=== PATIENT | female | born 1975 | race Two or more races ===

== ENCOUNTER 2017-07-16 23:30 | Emergency (ER) | payer MEDICAID ==
[~2017-07-16] VITALS: Ht 160 cm; Wt 81.6 kg
[~2017-07-16 23:30] MED LIST: ASP81EC PO; Atorvastatin Calcium PO
[2017-07-17 00:48] LABS: Basophils # (auto) 0 uL; Basophils % (auto) 0.5 % (0.0-2.0); CONDITION Y; Eosinophils # (auto) 0.2 uL; Hematocrit 38.7 % (36.0-46.0); Hemoglobin 13.3 g/dL (12.2-16.2); Lymphocytes # (auto) 3.5 uL; Lymphocytes % (auto) 38.3 % (10.0-50.0); Mean Corpuscular Hgb Conc. 34.3 g/dL (32.0-36.0); Mean Corpuscular Volume 87.4 fL (80.0-100.0); Monocytes # (auto) 0.4 uL; Monocytes % (auto) 4.9 % (0.0-12.0); Neutrophils # (auto) 4.9 uL; Neutrophils % (auto) 54.3 % (37.0-80.0); Platelet Count (auto) 327 10^3/uL (140-450); Red Cell Distribution Width 13.7 % (11.6-16.0); White Blood Cell 9.1 10^3/uL (4.4-10.8)
[2017-07-17 01:12] LABS: INR 0.98 (0.9-1.15); Partial Thromboplastin Time 25.7 sec (22.64-33.71); Prothrombin Time 10.7 sec (9.37-12.3)
[2017-07-17 01:33] LABS: Urine Bilirubin Negative (Negative); Urine Blood TRACE /uL (Negative); Urine Color Yellow (Yellow); Urine Glucose Normal (Normal); Urine Hyaline Cast FEW /lpf (0 - 2); Urine Ketone Negative (Negative); Urine Mucus FEW (None Seen); Urine Nitrite Negative (Negative); Urine RBC 1 /hpf (0 - 4); Urine Squamous Epithelial Cell FEW /hpf (<5); Urine Urobilinogen Normal (Negative)
[2017-07-17 02:59] LABS: Albumin 3.5 g/dL (3.4-5.0); Alkaline Phosphatase 139 U/L (45-117); Anion Gap 9 (5-15); Aspartate Aminotransferase 22 U/L (15-37); BUN/Creatinine Ratio 13.4; Bilirubin, Total 0.2 mg/dL (0.2-1.0); Blood Urea Nitrogen 11 mg/dL (7-18); Calcium 8.1 mg/dL (8.5-10.1); Carbon Dioxide 24 mmol/L (21-32); Chloride 111 mmol/L (98-107); GFR African American 98 mL/min; GFR Non-African American 81 mL/min; Glucose 90 mg/dL (74-106); Potassium 3.5 mmol/L (3.5-5.1); Sodium 144 mmol/L (136-145); Total Protein 7.8 g/dL (6.4-8.2)
[2017-07-17] MEDS ORDERED: MORPHINE SULF INJ 2 MG/ML SYRINGE 1ML IV ONE (06:00)
[2017-07-17] MEDS ORDERED: ONDANSETRON HCL 4 MG/2 ML VIAL IV ONE (06:00)
[2017-07-17] MEDS ORDERED: ASPirin 81 mg TAB PO ONE (06:30)
[2017-07-17 06:37] VITALS: BP 100/54
== END 2017-07-17 07:21 | disposition home or self-care (01) ==
LOC: ER 23:39
DX: R07.9 Chest pain, unspecified (principal); Z79.82 Long term (current) use of aspirin; Z86.73 Personal history of transient ischemic attack (TIA), and cerebral infarction without residual deficits
CPT/HCPCS: 36415; 71020; 80053; 81001; 81025; 83880; 84484; 85025; 85379; 85610; 85730; 93005; 94761; 96374; 96375; 99285; J2270; J2405

== ENCOUNTER 2018-01-04 20:02 | Emergency (ER) | payer MEDICAID ==
[~2018-01-04] VITALS: Ht 165.1 cm; Wt 87.2 kg
[2018-01-04 20:56] LABS: Urine Bacteria FEW /hpf (None Seen); Urine Blood 1+ /uL (Negative); Urine Specific Gravity 1.028 (1.001-1.035); Urine WBC 3 /hpf (0 - 5)
[2018-01-05] MEDS ORDERED: NALBUPHINE HCL 10 MG/1ml INJECTION IM ONE (00:45)
[2018-01-05] MEDS ORDERED: ONDANSETRON HCL 4 MG/2 ML VIAL IM ONE (00:45)
[2018-01-05 01:16] VITALS: BP 106/62
== END 2018-01-05 02:05 | disposition home or self-care (01) ==
LOC: ER 20:02
DX: G43.909 Migraine, unspecified, not intractable, without status migrainosus (principal); Z86.73 Personal history of transient ischemic attack (TIA), and cerebral infarction without residual deficits
CPT/HCPCS: 70450; 81001; 81025; 96372; 99285; J2300; J2405

== ENCOUNTER 2018-02-20 23:58 | Emergency (ER) | payer MEDICAID ==
[~2018-02-20] VITALS: Ht 165.1 cm; Wt 86.2 kg
[2018-02-21 00:02] VITALS: BP 127/85
[2018-02-21 00:39] LABS: Basophils # (auto) 0 uL; Basophils % (auto) 0.4 % (0.0-2.0); Eosinophils # (auto) 0.2 uL; Eosinophils % (auto) 2.2 % (0.0-7.0); Hematocrit 41.5 % (36.0-46.0); Hemoglobin 14.1 g/dL (12.2-16.2); Mean Corpuscular Hemoglobin 29.7 pg (28.0-32.0); Mean Corpuscular Hgb Conc. 33.9 g/dL (32.0-36.0); Mean Corpuscular Volume 87.5 fL (80.0-100.0); Monocytes # (auto) 0.6 uL; Monocytes % (auto) 6.3 % (0.0-12.0); Neutrophils # (auto) 4.7 uL; Neutrophils % (auto) 49.1 % (37.0-80.0); Nucleated Red Blood Cells % 0.1 %; Platelet Count (auto) 310 10^3/uL (140-450); Red Blood Cells 4.74 10^6/uL (4.0-5.20); Red Cell Distribution Width 13.3 % (11.8-14.3); White Blood Cell 9.6 10^3/uL (4.4-10.8)
[2018-02-21 00:55] LABS: Alanine Aminotransferase 40 U/L (13-56); Albumin 3.7 g/dL (3.4-5.0); Anion Gap 7 (5-15); Aspartate Aminotransferase 22 U/L (15-37); BUN/Creatinine Ratio 16.3; Blood Urea Nitrogen 13 mg/dL (7-18); Calcium 8.9 mg/dL (8.5-10.1); Carbon Dioxide 26 mmol/L (21-32); Chloride 107 mmol/L (98-107); GFR African American 101 mL/min; GFR Non-African American 83 mL/min; Glucose 124 mg/dL (74-106); Magnesium 2.3 mg/dL (1.6-2.6); Potassium 3.6 mmol/L (3.5-5.1); Sodium 140 mmol/L (136-145)
[2018-02-21 01:46] LABS: Alkaline Phosphatase 142 U/L (45-117); Bilirubin, Total 0.2 mg/dL (0.2-1.0); Total Protein 8.2 g/dL (6.4-8.2)
[2018-02-21 03:55] LABS: Urine Bacteria FEW /hpf (None Seen); Urine Blood Negative /uL (Negative); Urine Specific Gravity 1.008 (1.001-1.035); Urine WBC 3 /hpf (0 - 5)
== END 2018-02-21 04:40 | disposition left against medical advice (07) ==
LOC: ER 23:59
DX: R42 Dizziness and giddiness (principal); R07.9 Chest pain, unspecified; R11.0 Nausea; Z53.21 Procedure and treatment not carried out due to patient leaving prior to being seen by health care provider
CPT/HCPCS: 36415; 70450; 71045; 80053; 81001; 83735; 83880; 84484; 85025; 93005

== ENCOUNTER 2020-04-24 09:50 | Emergency (ER) | payer MEDICAID ==
[~2020-04-24] VITALS: Ht 165.1 cm; Wt 87.1 kg
[2020-04-24 10:09] VITALS: BP 133/74
[2020-04-24] MEDS ORDERED: KETOROLAC TROMETH 60MG/2ML VIAL IM ONE (10:15)
== END 2020-04-24 10:59 | disposition home or self-care (01) ==
LOC: ER 09:50
DX: S93.402A Sprain of unspecified ligament of left ankle, initial encounter (principal); S93.602A Unspecified sprain of left foot, initial encounter; W01.0XXA Fall on same level from slipping, tripping and stumbling without subsequent striking against object, initial encounter; Y93.E9 Activity, other interior property and clothing maintenance; Y92.89 Other specified places as the place of occurrence of the external cause; Y99.8 Other external cause status
CPT/HCPCS: 73610; 73630; 96372; 99284; J1885

== ENCOUNTER 2021-01-27 08:46 | Emergency (ER) | payer BC, MEDICAID ==
[~2021-01-27] VITALS: Ht 165.1 cm; Wt 81.6 kg
[~2021-01-27 08:46] MED LIST changes: -ASP81EC PO; +ASPI-394 PO
[2021-01-27] MEDS ORDERED: ACETAMINOPHEN 325 MG TAB PO ONE (09:00)
[2021-01-27 10:26] VITALS: BP 124/79
== END 2021-01-27 11:36 | disposition home or self-care (01) ==
LOC: ER 08:46
DX: G43.909 Migraine, unspecified, not intractable, without status migrainosus (principal); Z20.822 Contact with and (suspected) exposure to COVID-19
CPT/HCPCS: 36415; 70450; 87426

== ENCOUNTER 2021-06-09 03:58 | Emergency (ER) | payer MEDICAID ==
[~2021-06-09] VITALS: Ht 165.1 cm; Wt 90.7 kg
[2021-06-09 05:55] VITALS: BP 126/86
== END 2021-06-09 06:56 | disposition home or self-care (01) ==
LOC: ER 03:58
DX: J06.9 Acute upper respiratory infection, unspecified (principal); J02.9 Acute pharyngitis, unspecified; R51.9 Headache, unspecified; M79.10 Myalgia, unspecified site; R53.83 Other fatigue; L56.8 Other specified acute skin changes due to ultraviolet radiation; Z86.73 Personal history of transient ischemic attack (TIA), and cerebral infarction without residual deficits; Z79.82 Long term (current) use of aspirin; Z79.899 Other long term (current) drug therapy

== ENCOUNTER 2021-06-11 11:46 | Emergency (ER) | payer MEDICAID ==
[~2021-06-11] VITALS: Ht 167.6 cm; Wt 129.3 kg
[2021-06-11 13:53] VITALS: BP 123/81
[2021-06-11] MEDS ORDERED: ACETAMINOPHEN 500 MG TAB PO ONE (14:15)
[2021-06-11] MEDS ORDERED: cefTRIAXone W LIDOCAINE 1 GM IM IM ONE (14:15)
== END 2021-06-11 15:02 | disposition home or self-care (01) ==
LOC: ER 11:46
DX: U07.1 COVID-19 (principal); J02.9 Acute pharyngitis, unspecified
CPT/HCPCS: 36415; 71045; 87426; 96372; 99284; J0696

== ENCOUNTER 2022-07-12 09:11 | Emergency (ER) | payer MEDICAID, OTHER ==
[~2022-07-12] VITALS: Ht 165.1 cm; Wt 84.9 kg
[2022-07-12 10:13] VITALS: BP 129/77
[2022-07-12] MEDS ORDERED: AMOX-277 PO (10:45)
[2022-07-12] MEDS ORDERED: TETANUS-DIPTH-ACEL PERTUSSIS 0.5ML SYR Tdap IM ONE (10:45)
[2022-07-12] MEDS ORDERED: ACET-1158 PO (10:45)
== END 2022-07-12 11:28 | disposition home or self-care (01) ==
LOC: ER 09:11
DX: S51.851A Open bite of right forearm, initial encounter (principal); W50.3XXA Accidental bite by another person, initial encounter; Y93.89 Activity, other specified; Y92.89 Other specified places as the place of occurrence of the external cause; Y99.8 Other external cause status
CPT/HCPCS: 90471; 90715

== ENCOUNTER 2022-12-01 03:30 | Emergency (ER) | payer MEDICAID ==
[~2022-12-01] VITALS: Ht 165.1 cm; Wt 91.0 kg
[~2022-12-01 03:30] MED LIST changes: +ACET-1158 PO; +AMOX-277 PO
[2022-12-01 04:09] LABS: Basophils # (auto) 0 10 ^3/uL (0-0.2); Basophils % (auto) 0.3 % (0.0-2.0); Eosinophils # (auto) 0.2 10 ^3/uL (0-0.8); Eosinophils % (auto) 2.8 % (0.0-7.0); Hematocrit 40.1 % (36.0-46.0); Hemoglobin 13.6 g/dL (12.2-16.2); Lymphocytes # (auto) 2.5 10 ^3/uL (0.4-5.4); Lymphocytes % (auto) 40.5 % (10.0-50.0); Mean Corpuscular Hemoglobin 29.5 pg (28.0-32.0); Mean Corpuscular Hgb Conc. 33.8 g/dL (32.0-36.0); Mean Corpuscular Volume 87.3 fL (80.0-100.0); Monocytes # (auto) 0.5 10 ^3/uL (0-1.3); Monocytes % (auto) 7.7 % (0.0-12.0); Neutrophils % (auto) 48.7 % (37.0-80.0); Nucleated Red Blood Cells % 0.2 %; Red Cell Distribution Width 12.9 % (11.8-14.3); White Blood Cell 6.2 10^3/uL (4.4-10.8)
[2022-12-01 04:22] LABS: Albumin 3.6 g/dL (3.4-5.0); Calcium 8.5 mg/dL (8.5-10.1); Potassium 3.9 mmol/L (3.5-5.1)
[2022-12-01 04:25] LABS: Bilirubin, Total 0.6 mg/dL (0.2-1.0); Total Protein 7.6 g/dL (6.4-8.2)
[2022-12-01 04:54] LABS: BUN/Creatinine Ratio 12.2
[2022-12-01] MEDS ORDERED: OXYCODONE W/ ACETAMINOPHEN 5/325MG TABLET PO ONE (06:45)
[2022-12-01] MEDS ORDERED: metroNIDAZOLE 500 MG TAB PO ONE (06:45)
[2022-12-01] MEDS ORDERED: CIPROFLOXACIN HCL 500 MG TAB PO ONE (06:45)
[2022-12-01] MEDS ORDERED: METR500T PO (06:53)
[2022-12-01] MEDS ORDERED: PERCOT PO (06:53)
[2022-12-01] MEDS ORDERED: CIPR-173 PO (06:53)
[2022-12-01 07:45] VITALS: BP 109/70
== END 2022-12-01 07:56 | disposition home or self-care (01) ==
LOC: ER 03:30
DX: K52.9 Noninfective gastroenteritis and colitis, unspecified (principal); K57.30 Diverticulosis of large intestine without perforation or abscess without bleeding; Z79.899 Other long term (current) drug therapy; Z98.890 Other specified postprocedural states
CPT/HCPCS: 36415; 71045; 74176; 80053; 83690; 85025

== ENCOUNTER 2024-01-16 06:35 | Emergency (ER) | payer MEDICAID, OTHER ==
[~2024-01-16] VITALS: Ht 165.1 cm; Wt 89.9 kg
[~2024-01-16 06:35] MED LIST changes: -ACET-1158 PO; +ACET500T58 PO; -AMOX-277 PO; +AMOX875T4 PO; +CIPR-173 PO; +METR500T PO; +PERCOT PO
[2024-01-16 06:46] VITALS: BP 114/72; PULSE 68; RESP 18; O2SAT 96
[2024-01-16] MEDS ORDERED: MELO-335 PO (07:31)
[2024-01-16] MEDS ORDERED: CYCL-837 PO (07:31)
== END 2024-01-16 07:41 | disposition home or self-care (01) ==
LOC: ER 06:35
DX: M54.2 Cervicalgia (principal); Z98.51 Tubal ligation status

== ENCOUNTER 2024-02-15 03:27 | Emergency (ER) | payer MEDICAID ==
[~2024-02-15] VITALS: Ht 165.1 cm; Wt 85.6 kg
[~2024-02-15 03:27] MED LIST changes: +CYCL-837 PO; +MELO15TA29 PO
[2024-02-15 03:55] LABS: Basophils # (auto) 0 10 ^3/uL (0-0.2); Basophils % (auto) 0.6 % (0.0-2.0); Eosinophils # (auto) 0.3 10 ^3/uL (0-0.8); Eosinophils % (auto) 3.7 % (0.0-7.0); Hematocrit 38.6 % (36.0-46.0); Hemoglobin 13.1 g/dL (12.2-16.2); Lymphocytes # (auto) 2.6 10 ^3/uL (0.4-5.4); Lymphocytes % (auto) 37.6 % (10.0-50.0); Mean Corpuscular Hemoglobin 29.4 pg (28.0-32.0); Mean Corpuscular Volume 86.5 fL (80.0-100.0); Monocytes # (auto) 0.5 10 ^3/uL (0-1.3); Monocytes % (auto) 7.2 % (0.0-12.0); Neutrophils # (auto) 3.6 10 ^3/uL (1.6-8.6); Neutrophils % (auto) 50.9 % (37.0-80.0); Nucleated Red Blood Cells % 0.1 %; Red Blood Cells 4.47 10^6/uL (4.0-5.20); Red Cell Distribution Width 13.2 % (11.8-14.3)
[2024-02-15 04:15] LABS: Alanine Aminotransferase 25 U/L (7-40); Albumin 4.1 g/dL (3.2-4.8); Alkaline Phosphatase 116 U/L (46-116); Anion Gap 5 (5-15); Aspartate Aminotransferase 22 U/L (13-40); BUN/Creatinine Ratio 14.7 (10.0-20.0); Bilirubin, Total 0.4 mg/dL (0.2-1.0); Blood Urea Nitrogen 11 mg/dL (9-23); Calcium 9.3 mg/dL (8.7-10.4); Carbon Dioxide 26 mmol/L (20-30); Chloride 108 mmol/L (98-107); Glucose 101 mg/dL (74-106); Magnesium 2.1 mg/dL (1.6-2.6); Potassium 3.7 mmol/L (3.5-5.1); Sodium 139 mmol/L (136-145); Total Protein 7.3 g/dL (5.7-8.2)
[2024-02-15 04:16] LABS: INR 1.05 (0.9-1.15); Partial Thromboplastin Time 27.7 SEC (24.5-34.5)
[2024-02-15] MEDS ORDERED: CYCL-839 PO (07:08)
[2024-02-15] MEDS ORDERED: NAP500T PO (07:08)
[2024-02-15] MEDS: CYCLOBENZAPRINE HCL 10 MG TAB PO ONE (08:05)
[2024-02-15] MEDS: KETOROLAC TROMETH 60MG/2ML VIAL IM ONE (08:05)
[2024-02-15 08:12] VITALS: BP 107/66; PULSE 61; RESP 18; TEMP 98.3; O2SAT 98
== END 2024-02-15 08:16 | disposition home or self-care (01) ==
LOC: ER 03:27
DX: R07.89 Other chest pain (principal); Z98.51 Tubal ligation status; Z86.73 Personal history of transient ischemic attack (TIA), and cerebral infarction without residual deficits
CPT/HCPCS: 36415; 71045; 80053; 83735; 83880; 84484; 85025; 85610; 85730; 93005; 96372; 99285; J1885

== ENCOUNTER 2024-05-05 16:30 | Emergency (ER) | payer MEDICAID ==
[~2024-05-05] VITALS: Ht 165.1 cm; Wt 81.0 kg
[~2024-05-05 16:30] MED LIST changes: +CYCL-839 PO; +NAP500T PO
[2024-05-05 18:20] VITALS: BP 123/75; PULSE 74; RESP 14; TEMP 98.4; O2SAT 95
[2024-05-05 19:14] LABS: Basophils # (auto) 0 10 ^3/uL (0-0.2); Basophils % (auto) 0.5 % (0.0-2.0); Eosinophils # (auto) 0.2 10 ^3/uL (0-0.8); Eosinophils % (auto) 2.1 % (0.0-7.0); Hematocrit 40.2 % (36.0-46.0); Hemoglobin 13.9 g/dL (12.2-16.2); Lymphocytes # (auto) 3.3 10 ^3/uL (0.4-5.4); Lymphocytes % (auto) 34.7 % (10.0-50.0); Mean Corpuscular Hemoglobin 30.1 pg (28.0-32.0); Mean Corpuscular Hgb Conc. 34.5 g/dL (32.0-36.0); Mean Corpuscular Volume 87.3 fL (80.0-100.0); Monocytes # (auto) 0.5 10 ^3/uL (0-1.3); Monocytes % (auto) 5.6 % (0.0-12.0); Neutrophils # (auto) 5.4 10 ^3/uL (1.6-8.6); Neutrophils % (auto) 57.1 % (37.0-80.0); Red Blood Cells 4.61 10^6/uL (4.0-5.20); Red Cell Distribution Width 13.2 % (11.8-14.3); White Blood Cell 9.5 10^3/uL (4.4-10.8)
[2024-05-05 19:19] LABS: Chloride 107 mmol/L (98-107); Sodium 139 mmol/L (136-145)
[2024-05-05 19:20] LABS: Anion Gap 5 (5-15); Calcium 9.8 mg/dL (8.7-10.4); Carbon Dioxide 27 mmol/L (20-30)
[2024-05-05 19:25] LABS: BUN/Creatinine Ratio 10.6 (10.0-20.0); Blood Urea Nitrogen 9 mg/dL (9-23); Glucose 90 mg/dL (74-106)
[2024-05-05 19:27] LABS: INR 1.03 (0.9-1.15); Partial Thromboplastin Time 25.9 SEC (24.5-34.5); Prothrombin Time 10.9 sec (9.3-11.8)
[2024-05-05] MEDS ORDERED: IBUP-1455 PO (19:38)
[2024-05-05] MEDS: KETOROLAC TROMETH 60MG/2ML VIAL IM ONE (19:56)
== END 2024-05-05 19:54 | disposition home or self-care (01) ==
LOC: ER 16:30
DX: R60.0 Localized edema (principal); Z98.51 Tubal ligation status
CPT/HCPCS: 36415; 80048; 85025; 85610; 85730; 93971

== ENCOUNTER 2024-10-02 15:03 | Inpatient (IN) | payer MEDICAID ==
[~2024-10-02] VITALS: Ht 165.1 cm; Wt 85.5 kg
[~2024-10-02 15:03] MED LIST changes: +IBUP-1455 PO
[2024-10-02] MEDS: NITROGLYCERIN 0.4 MG SL TAB SL ONE (15:15)
--- NOTE | 2024-10-02 15:19 | ED.PDOC ---
HPI Comments HPI: Poor Historian. 48y F who presents to the ED for chief complaint of chest pain. Pt states she has been having chest pain pain 1445 this afternoon while at work. Pt states she felt nausea, dizziness and chest pain. Pt states she felt chest tightness, radiating to the L arm, constant, with no associated exacerbating or relieving factors. Pt otherwise denies diaphoresis, palpitations, shortness of breath and any associated symptoms. Pt otherwise denies any other symptoms at this time. Vitals T: 97.8 F RR: 18 HR: 60 BP: 107/80 O2: 95 % on RA PMH: constipation PSH: tubal ligation Social hx: denies tobacco use, denies ETOH use, denies drug use medications; denies allergies: NKDA REVIEW OF SYSTEMS: CONSTITUTIONAL: Denies acute: fever, diaphoresis, chills, generalized weakness. HEAD: Denies acute: headache, photophobia Eyes: Denies acute: Double vision, vision loss, eye pain, eye discharge. EARS: Denies acute: tinnitus, hearing loss, ear discharge, ear pain, THROAT: Denies acute: sore throat, swelling, difficulty swallowing , pain with swallowing, change in voice. NECK: Denies acute: neck pain, neck swelling, stiff neck. HEART: Denies acute : , palpitations, LUNGS: Denies acute: SOB, wheezing, cough, hemoptysis ABDOMEN: Denies acute: abdominal pain, Vomiting, diarrhea, melena , hematemesis, hematochezia SKIN: Denies acute: rash, redness, lesions, itchiness. EXTREMITIES: Denies acute: calf pain, numbness, tingling, weakness, Denies acute: Low back pain. Neuro: Denies acute: focal neurological deficit, motor or sensory focal neurological deficit, tremors, seizure like activity, confusion, change in mental status, loss of bowel or bladder function, cauda equina like symptoms. : Denies acute: dysuria, hematuria, flank pain, increase in urinary frequency. PSYCH: Denies acute: hallucination, suicidal ideation, homicidal ideation. FEMALE: Denies acute: abnormal vaginal bleeding, foul odor, unusual discharge. PHYSICAL EXAM: General: no acute distress, awake and alert. Head: normocephalic, atraumatic. Neck: supple, trachea is midline, no swelling. Throat: Normal phonation. Eyes:, no erythema, no purulent discharge, no proptosis, no icterus. Heart: regular rate, regular rhythm, no significant murmur appreciated. Lungs: no apparent respiratory distress, Able to speak in full sentences. No wheezing, no rhonchi, no crackles. No stridors Clear to auscultation bilaterally. Abdomen: non tender to palpation, non distended, soft, no guarding, no rebound, + bowel sounds. Neuro: Awake, Alert, oriented to name, self, situation, follows commands GCS=15. Speech is normal. Skin: no petechia, no purpura, no cyanosis, non-pale, not jaundice. Lower extremities: --no - Pitting edema no deformity, no focal swelling, no calf TTP. Makes eye contact. moves all four extremities. Face: no apparent facial droop. Ambulating in the ED independently. Chief Complaint: Chest Pain Time Seen by MD: 15:05 Primary Care Provider: DARREN Reviewed Notes: Nurses Notes, Allergies Allergies: Coded Allergies: NO KNOWN ALLERGIES (Unverified , 02/21/18) Home Meds Active Scripts Ibuprofen Micronized (Ibuprofen) 800 Mg Tab, 800 MG PO Q8HP PRN, #30 TAB Prov:DEJUAN BOONE MD 05/05/24 Naproxen (NAPROSYN TABLET) 500 Mg Tb, 1 TAB PO BID PRN, #20 TAB 1 Refill Prov:LEYLA BRADSHAW MD 02/15/24 Cyclobenzaprine Hcl (Cyclobenzaprine Hcl) 10 Mg Tab, 10 MG PO TID PRN, #21 TAB Prov:LEYLA BRADSHAW MD 02/15/24 Cyclobenzaprine Hcl (Cyclobenzaprine Hcl) 5 Mg Tab, 1 TAB PO QPM for 30 Days, #3 0 TAB 0 Refills Prov:KAYLA JACOB NP 01/16/24 Meloxicam (Meloxicam) 15 Mg Tab, 1 TAB PO DAILY for 30 Days, #30 TAB 0 Refills Prov:KAYLA JACOB TRAINING AND DOCUMENTATION SPECIALIST 01/16/24 Oxycodone W/ Acetaminophen (Percocet 5/325MG) 1 Tab Tb, 1 TAB PO BID for 7 Days, #14 TAB Prov:ARRON PEREZ MD 12/01/22 Ciprofloxacin Hcl (Cipro) 500 Mg Tab, 1 TAB PO BID for 7 Days, #14 TAB Prov:ARRON PEREZ MD 12/01/22 Metronidazole (Flagyl) 500 Mg Tab, 500 MG PO BID for 7 Days, #14 TAB Prov:ARRON PEERZ MD 12/01/22 Acetaminophen (Acetaminophen) 500 Mg Tab, 500 MG PO QIDP, #30 TAB 0 Refills Prov:DANA OJSEPH 07/12/22 Amoxicillin & Pot Clavulanate (Amoxicillin/Potassium Cla) 875 Mg Tab, 1 TAB PO BID for 7 Days, #14 TAB 0 Refills Prov:DANA JOSEPH 07/12/22 Aspirin (Aspir-Low Ec) 81 Mg Tb, 1 TAB PO DAILY, #30 TAB Prov:LUIS DANIEL MARAVILLA MD 08/13/16 [Atorvastatin Calcium] 20 MG TB No Conflict Check, 10 MG PO HS, #30 TAB Prov:PRICILLA DUMONT M.D. 12/29/14 Information Source: Patient Mode of Arrival: Ambulatory Brought in by: self Past Medical History PAST MEDICAL HISTORY: Denies Surgical History: BTL, Tubal Ligation SPECIALIZED LANGUAGE INSTRUCTOR History: No Pertinent SPECIALIZED LANGUAGE INSTRUCTOR History Family History Family History: Reviewed,noncontributory to illness Social History Smoker: Non-Smoker Alcohol: Denies ETOH Use Drugs: Denies Drug Use Lives In: Home Was a procedure done? Was a procedure done?: No CP Differential Dx Differential Diagnosis: N/A Differential Diagnosis: Other (Ddx include but not limitied to gastritis, musculoskeletal pain, radiculopathy, atypical chest pain, dissection, aneurysm, ACS, unstable angina, hiatal hernia, GERD, anxiety, costochondritis, PE, pneumo throax, neoplasm, cardiac ischemia, drug abuse, anemia.) X-Ray, Labs, Meds, VS Vital Signs Date Time Temp Pulse Resp B/P (MAP) Pulse Ox O2 Delivery O2 Flow Rate FiO2 10/02/24 16:03 62 10/02/24 15:15 123/78 10/02/24 15:12 97.8 60 18 107/80 (89) 95 10/02/24 15:08 60 Lab Test 10/02/24 16:36 10/02/24 15:16 10/02/24 15:13 Range/Units Troponin I High Sensitivity < 3 L < 3 L </=34 ng/L POC Glucose 120 H 70-106 mg/dl White Blood Count 7.5 4.4-10.8 10^3/uL Red Blood Count 4.42 4.0-5.20 10^6/uL Hemoglobin 13.1 12.2-16.2 g/dL Hematocrit 38.6 36.0-46.0 % Mean Corpuscular Volume 87.4 80.0-100.0 fL Mean Corpuscular Hemoglobin 29.7 28.0-32.0 pg Mean Corpuscular Hemoglobin Concent 34.0 32.0-36.0 g/dL Red Cell Distribution Width 13.2 11.8-14.3 % Platelet Count 300 140-450 10^3/uL Mean Platelet Volume 7.5 6.9-10.8 fL Neutrophils (%) (Auto) 51.4 37.0-80.0 % Lymphocytes (%) (Auto) 41.2 10.0-50.0 % Monocytes (%) (Auto) 5.1 0.0-12.0 % Eosinophils (%) (Auto) 2.0 0.0-7.0 % Basophils (%) (Auto) 0.3 0.0-2.0 % Neutrophils # (Auto) 3.9 1.6-8.6 10 ^3/uL Lymphocytes # (Auto) 3.1 0.4-5.4 10 ^3/uL Monocytes # (Auto) 0.4 0-1.3 10 ^3/uL Eosinophils # (Auto) 0.1 0-0.8 10 ^3/uL Basophils # (Auto) 0 0-0.2 10 ^3/uL Nucleated Red Blood Cells 0.1 % D-Dimer, Quantitative 1.02 H 0.0-0.49 mg/L FEU Sodium Level 141 136-145 mmol/L Potassium Level 3.9 3.5-5.1 mmol/L Chloride Level 107 98-107 mmol/L Carbon Dioxide Level 27 20-31 mmol/L Anion Gap 7 5-15 Blood Urea Nitrogen 11 9-23 mg/dL Creatinine 0.87 0.550-1.02 mg/dL Glomerular Filtration Rate Calc 82 >90 mL/min BUN/Creatinine Ratio 12.6 10.0-20.0 Serum Glucose 111 H 74-106 mg/dL Lactic Acid Level 1.1 0.4-2.0 mmol/L Calcium Level 9.7 8.7-10.4 mg/dL Total Bilirubin 0.3 0.2-1.0 mg/dL Aspartate Amino Transferase (AST) 21 13-40 U/L Alanine Aminotransferase (ALT) 27 7-40 U/L Alkaline Phosphatase 118 H 46-116 U/L B-Type Natriuretic Peptide 20.90 0-100 pg/mL Total Protein 7.6 5.7-8.2 g/dL Albumin 4.3 3.2-4.8 g/dL Current Medications Medications (Trade) Dose Ordered Sig/Bud Route Start Time Stop Time Status Last Admin Aspirin 325 mg ONCE ONCE PO 10/02/24 15:15 10/02/24 15:16 DC 10/02/24 18:40 Sodium Chloride 1,000 ml @ 1,000 mls/hr Q1H ONCE IV 10/02/24 15:15 10/02/24 16:14 DC 10/02/24 18:40 [place] [id number] Ph: [phone] DIAGNOSTIC IMAGING Diagnostic Imaging Report : [id number] Signed PATIENT: MANSOOR CASE ACCT: [id number] UNIT: [id number] : 1975 LOC: ER ROOM / BED: / AGE / SEX: 48 / F ADM STATUS: REG ER SERVICE 1509 ORDERING PHYSICIAN: ANTHONY GARCIA DO PROCEDURE(s): CXRP - CHEST PORTABLE REASON: cp ORDER NUMBER(s): [id number], ACCESSION NUMBER(s): [id number] EXAM: XY CHEST PORTABLE CLINICAL HISTORY: cp TECHNIQUE: Single AP view of the chest WID: COMPARISON: XY CHEST PORTABLE on DOS: 02/15/24 FINDINGS: Lines and tubes: None Chest: The heart size and pulmonary vasculature is within normal limits. No pleural effusion, pneumothorax, or consolidation. The osseous structures are grossly intact. IMPRESSION: No acute cardiopulmonary abnormality. ATED BY: COMFORT VALLADARES MD DICTATED DATE/TIME: 10/02/24 154 SIGNED BY: COMFORT VALLADARES MD SIGNED DATE/TIME: 10/02/241543 CC: Time of 1ST Reevaluation: 19:04 Reevaluation 1ST: Improved Patient Education/Counseling: Diagnosis, Treatment Family Education/Counseling: No Family Present Comments Patient presented with the above HPI.---cardiac---workup was initiated. patient was found with the above mentioned diagnosis. Patient was given: Aspirin and nitroglycerin. Patient ED course and VS have been stabilized. Patient has been reassessed in the ED and remained in a stable condition. Pertinent incidental findings were discussed with the patient and/or family. Patient/family voices understanding and is agreeable with plan. Patient has been observed in the ED adequate length of time to insure improvement/stability. CTA of chest is still pending patient was admitted to the medicine team for further evaluation and treatment of their presentation. All the reports of any imaging studies that were ordered by myself were reviewed by myself. Departure 1 Departure Time of Disposition: 15:40 Impression: Primary Impression: Chest pain Additional Impression: Elevated d-dimer Disposition: ADMITTED INPATIENT Admit to: [facility] Condition: Guarded Discharged With: Self Critical Care Note Critical Care Time?: No Heart Score Heart Score: Heart Score Response (Comments) Value History Slightly Suspicious 0 EKG Normal 0 Age 45-64 1 Risk Factors No known risk factors 0 Troponin Normal limit 0 Total 1 I personally scribed for ANTHONY GARCIA DO ([email or web address]) on 10/02/24 at 15:33. Electronically submitted by Ivonne Knowles ([email or web address]). I personally scribed for ANTHONY GARCIA DO ([email or web address]) on 10/02/24 at 16:21. Electronically submitted by Ivonne MENDOZA). ANTHONY GARCIA DO Oct 02, 2024 15:19
[2024-10-02 15:42] LABS: Basophils # (auto) 0 10 ^3/uL (0-0.2); Basophils % (auto) 0.3 % (0.0-2.0); Eosinophils # (auto) 0.1 10 ^3/uL (0-0.8); Hematocrit 38.6 % (36.0-46.0); Hemoglobin 13.1 g/dL (12.2-16.2); Lymphocytes # (auto) 3.1 10 ^3/uL (0.4-5.4); Lymphocytes % (auto) 41.2 % (10.0-50.0); Mean Corpuscular Hemoglobin 29.7 pg (28.0-32.0); Mean Corpuscular Volume 87.4 fL (80.0-100.0); Monocytes # (auto) 0.4 10 ^3/uL (0-1.3); Monocytes % (auto) 5.1 % (0.0-12.0); Neutrophils # (auto) 3.9 10 ^3/uL (1.6-8.6); Neutrophils % (auto) 51.4 % (37.0-80.0); Nucleated Red Blood Cells % 0.1 %; Platelet Count (auto) 300 10^3/uL (140-450); Red Blood Cells 4.42 10^6/uL (4.0-5.20); Red Cell Distribution Width 13.2 % (11.8-14.3); White Blood Cell 7.5 10^3/uL (4.4-10.8)
--- NOTE | 2024-10-02 15:46 | DVH ---
EXAM: XY CHEST PORTABLE CLINICAL HISTORY: cp TECHNIQUE: Single AP view of the chest WID: COMPARISON: XY CHEST PORTABLE on DOS: 02/15/24 FINDINGS: Lines and tubes: None Chest: The heart size and pulmonary vasculature is within normal limits. No pleural effusion, pneumothorax, or consolidation. The osseous structures are grossly intact. IMPRESSION: No acute cardiopulmonary abnormality.
[2024-10-02 16:02] LABS: Alanine Aminotransferase 27 U/L (7-40); Albumin 4.3 g/dL (3.2-4.8); Alkaline Phosphatase 118 U/L (46-116); Anion Gap 7 (5-15); Aspartate Aminotransferase 21 U/L (13-40); BUN/Creatinine Ratio 12.6 (10.0-20.0); Bilirubin, Total 0.3 mg/dL (0.2-1.0); Blood Urea Nitrogen 11 mg/dL (9-23); Calcium 9.7 mg/dL (8.7-10.4); Carbon Dioxide 27 mmol/L (20-31); Chloride 107 mmol/L (98-107); Glucose 111 mg/dL (74-106); Potassium 3.9 mmol/L (3.5-5.1); Sodium 141 mmol/L (136-145); Total Protein 7.6 g/dL (5.7-8.2)
[2024-10-02] MEDS ORDERED: NITROGLYCERIN 0.4 MG SL TAB SL PRN (16:45)
[2024-10-02] MEDS ORDERED: MORPHINE SULFATE INJ 2 MG/ml SYRG IV PRN (16:45)
[2024-10-02] MEDS ORDERED: ONDANSETRON HCL 4 MG/2 ML VIAL IV PRN (16:45)
[2024-10-02] MEDS ORDERED: ZOLPIDEM TARTRATE 5 MG TAB PO PRN (16:45)
--- NOTE | 2024-10-02 16:49 | DVHHP2 ---
History of Present Illness Reason for Visit: chest pain History of Present Illness 48-year-old obese patient with past medical history of hypertension and intermittent constipation comes to the ED with complaints of chest pain that has been happening since the new the patient described the chest pain is acute tightness in the chest mostly on the left side with mild radiation to the right arm and left arm patient states no other associated factors including not being diabetic no underlying history of cardiac disease no underlying history of COPD patient was recommended for further evaluation of management within the ED to be admitted Cardiovascular: HTN Review of Systems Constitutional: Yes: Weakness; No: Fever, Chills, Sweats, Malaise, Other Eyes: No: Pain, Vision change, Conjunctivae inflammation, Eyelid inflammation, Other, Redness ENT: No: Ear pain, Ear discharge, Nose pain, Nose discharge, Nose congestion, Mouth pain, Mouth swelling, Throat pain, Throat swelling, Other Respiratory: Shortness of breath; No: Cough, Dry, SOB with excertion, Wheezing, Hemoptysis, Pleuritic Pain, Sputum, Wheezing, Other Cardiovascular: Chest Pain, Palpitations; No: Orthopnea, Paroxysmal Noc. Dyspnea, Edema, Lt Headedness, Other Gastrointestinal: No: Nausea, Vomiting, Abdominal Pain, Diarrhea, Constipation, Melena, Hematochezia, Other Genitourinary: No Dysuria, No Frequency, No Incontinence, No Hematuria, No Retention, No Other Musculoskeletal: No: other, neck pain, shoulder pain, arm pain, back pain, hand pain, leg pain, foot pain Skin: No: Rash, Lesions, Jaundice, Bruising, Other Neurological: No: Weakness, Numbness, Incoordination, Change in speech, Confusion, Seizures, Other Allergies: Coded Allergies: NO KNOWN ALLERGIES (Unverified , 02/21/18) Exam Vital Signs Vital Signs Date Time Temp Pulse Resp B/P (MAP) Pulse Ox O2 Delivery O2 Flow Rate FiO2 10/02/24 16:03 62 10/02/24 15:12 97.8 18 107/80 (89) 95 General Appearance: Oriented X3, mild distress HEENT: Atraumatic, PERRLA Respiratory: Clear to auscultation, Normal air movement Cardiovascular: Regular rate, Normal S1, Normal S2 Abdominal: Normal bowel sounds, Soft, No tenderness Extremities: No clubbing, No cyanosis Skin: No rashes, No breakdown Neuro: Normal gait, Normal speech Psych/Mental Status: Mood NL Labs/Xrays Labs Test 10/02/24 16:36 10/02/24 15:16 10/02/24 15:13 Range/Units POC Glucose 120 H 70-106 mg/dl White Blood Count 7.5 4.4-10.8 10^3/uL Red Blood Count 4.42 4.0-5.20 10^6/uL Hemoglobin 13.1 12.2-16.2 g/dL Hematocrit 38.6 36.0-46.0 % Mean Corpuscular Volume 87.4 80.0-100.0 fL Mean Corpuscular Hemoglobin 29.7 28.0-32.0 pg Mean Corpuscular Hemoglobin Concent 34.0 32.0-36.0 g/dL Red Cell Distribution Width 13.2 11.8-14.3 % Platelet Count 300 140-450 10^3/uL Mean Platelet Volume 7.5 6.9-10.8 fL Neutrophils (%) (Auto) 51.4 37.0-80.0 % Lymphocytes (%) (Auto) 41.2 10.0-50.0 % Monocytes (%) (Auto) 5.1 0.0-12.0 % Eosinophils (%) (Auto) 2.0 0.0-7.0 % Basophils (%) (Auto) 0.3 0.0-2.0 % Neutrophils # (Auto) 3.9 1.6-8.6 10 ^3/uL Lymphocytes # (Auto) 3.1 0.4-5.4 10 ^3/uL Monocytes # (Auto) 0.4 0-1.3 10 ^3/uL Eosinophils # (Auto) 0.1 0-0.8 10 ^3/uL Basophils # (Auto) 0 0-0.2 10 ^3/uL Nucleated Red Blood Cells 0.1 % Sodium Level 141 136-145 mmol/L Potassium Level 3.9 3.5-5.1 mmol/L Chloride Level 107 98-107 mmol/L Carbon Dioxide Level 27 20-31 mmol/L Anion Gap 7 5-15 Blood Urea Nitrogen 11 9-23 mg/dL Creatinine 0.87 0.550-1.02 mg/dL Glomerular Filtration Rate Calc 82 >90 mL/min BUN/Creatinine Ratio 12.6 10.0-20.0 Serum Glucose 111 H 74-106 mg/dL Calcium Level 9.7 8.7-10.4 mg/dL Total Bilirubin 0.3 0.2-1.0 mg/dL Aspartate Amino Transferase (AST) 21 13-40 U/L Alanine Aminotransferase (ALT) 27 7-40 U/L Alkaline Phosphatase 118 H 46-116 U/L B-Type Natriuretic Peptide 20.90 0-100 pg/mL Total Protein 7.6 5.7-8.2 g/dL Albumin 4.3 3.2-4.8 g/dL Assessment/Plan Assessment/Plan Admit to [facility] surgery Chest pain Acute ACS rule out Troponins so far negative continue with the triple evaluation to rule out acute ACS X-ray of the chest no acute signs of pulmonary or cardio congestion Repeat a.m. labs and continue to trend troponins The goals also rule out acute PE at this point in time D-dimer is currently pending if D-dimer is highly positive the next step is CTA History of morbid obesity Nursery history of diabetes Patient has hyperglycemia at this point in time we will have insulin sliding scale while inpatient for acute management Plan discussed with: Patient My Orders Orders - MARTI FLOREZ MD Procedure Category Date Status Time Admit ADMIT 10/02/24 Transmitted 16:42 Code Status CODE 10/02/24 Transmitted 16:42 Cardiac DIET 10/02/24 Transmitted Diet-2gna,Lofat,Lochol Dinner 0.9%Ns 1000 Ml PHA 10/02/24 Transmitted 16:45 Aspirin Tablet PHA 10/03/24 Transmitted 10:00 Clopidogrel Bisulfate PHA 10/03/24 Transmitted (Plavix) 10:00 Lipitor 40mg Hs PHA 10/02/24 Transmitted Hi-Intensity 22:00 Metoprolol Tartrate PHA 10/02/24 Transmitted Tablet (Lopressor Ta 22:00 Lisinopril Tablet PHA 10/03/24 Transmitted (Zestril Tablet) 10:00 Acetaminophen Tablet PHA 10/02/24 Transmitted (Tylenol Tablet) 16:45 Zolpidem Tartrate PHA 10/02/24 Transmitted (Ambien) 16:45 Lorazepam Tablet PHA 10/02/24 Transmitted (Ativan Tablet) 16:45 Docusate Sodium PHA 10/03/24 Transmitted Capsule (Colace 10:00 Complete Blood Count LAB 10/03/24 Verified 04:00 Basic Metabolic Panel LAB 10/03/24 Verified 04:00 Lovenox 80mg Sc Q12h PHA 10/03/24 Transmitted 10:00 Ondansetron Hcl PHA 10/02/24 Transmitted (Zofran) 16:45 Electrocardigram EKG 10/02/24 Transmitted 16:42 Alum & Mag PHA 10/02/24 Transmitted Hydrox-Simethicone 16:45 Troponin-I Hs LAB 10/02/24 Transmitted 16:42 Nitroglycerin PHA 10/02/24 Transmitted Sublingual (Ntrostat 16:45 Morphine Sulfate PHA 10/02/24 Transmitted Injection 16:45 Stat Ekg For Chest PONCHO 10/02/24 Transmitted Pain 16:42 Notify Md Of Changes [facility] 10/02/24 Transmitted From Base 16:42 Highway Design Engineer For [facility] 10/02/24 Transmitted 24 Hours 16:42 Emergency Dysrhythmia [facility] 10/02/24 Transmitted Protocol 16:42 Rhythm Strips Once [facility] 10/02/24 Transmitted Every Shift 16:42 Oxygen By Nasal RT 10/02/24 Transmitted Cannula 16:42 Problem List: (1) Obesity (BMI 30.0-34.9) (2) Chest pain (3) Cough (4) HEADACHE Date of Service: Oct 02, 2024 Billing Provider: MARTI FLOREZ MD Common Visit Codes: [id number] INP/OBS CARE (HIGH) MARTI FLOREZ MD Oct 02, 2024 16:49
--- NOTE | 2024-10-02 18:31 | ECG ---
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
--- NOTE | 2024-10-02 18:32 | ECG ---
[facility] Test Date: 2024-10-02 Test Time: 18:11:30 Pat Name: MANSOOR CASE Department: ER Room: 0273T Gender: F Radio Station Audio Engineer: GAGE : 1975 Requested By: ANTHONY GARCIA Order Number: [id number] Reading MD: Faustino Shannon Measurements Intervals [place] Rate: 65 P: 19 [place]: 145 QRS: 19 QRSD: 94 T: -2 QT: 417 QTc: 434 Interpretive Statements Sinus rhythm Low voltage, precordial leads Borderline T abnormalities, inferior leads Electronically Signed On 10-03-2024 14:17:55 PST by Faustino Shannon Please click the below link to view image of tracing.
--- NOTE | 2024-10-02 18:32 | ECG ---
[facility] Test Date: 2024-10-02 Test Time: 16:03:23 Pat Name: MANSOOR CASE Department: ER Room: 0273T Gender: F Architectural Model Maker: GAGE : 1975 Requested By: ANTHONY GARCIA Order Number: [id number] Reading MD: Faustino Shannon Measurements Intervals [place] Rate: 62 P: 35 [place]: 139 QRS: 23 QRSD: 90 T: 13 QT: 435 QTc: 442 Interpretive Statements Sinus rhythm Abnormal R-wave progression, early transition Electronically Signed On 10-03-2024 14:17:50 PST by Faustino Shannon Please click the below link to view image of tracing.
[2024-10-02] MEDS: LORazepam 0.5 MG TAB PO PRN (18:40)
[2024-10-02] MEDS: SODIUM CHLORIDE 0.9% 1,000 ML IV ONE (18:40)
[2024-10-02] MEDS: ASPirin 325 MG TAB PO ONE (18:40)
[2024-10-02] MEDS: MAALOX PLUS or MAALOX 30 ML PO ONE (18:40)
[2024-10-02] MEDS: ACETAMINOPHEN 325 MG TAB PO PRN (18:48)
[2024-10-02] MEDS: IOHEXOL 350 MG/ML 100ML IJ ONE (19:24)
--- NOTE | 2024-10-02 19:54 | DVH ---
Procedure: CT CT ANGIO CHEST CONTRAST Reason for study/Clinical History: cp Comparison Study: None available at time of dictation. Exam Date: 10/02/2024 07:10 PM Radiation Dose Information: CT Dose: CTDI volume is 30.24 mGy. Dose-length product is 730.62 mGy*cm Contrast: Type of contrast: Omnipaque 350 Contrast inject: 70 mL Contrast wasted:0 TECHNIQUE: After the uneventful administration of intravenous contrast intravenously, CT imaging was performed through the chest. Coronal and sagittal reformations were performed by the technologist. HI P images were obtained. FINDINGS: Lower Neck: Visualized portions of the thyroid gland are unremarkable. Aorta and Vasculature: Normal caliber of thoracic aorta. Lymph Nodes: No enlarged intrathoracic lymph nodes. Mediastinum: Heart size is normal. There is no pericardial effusion. The esophagus is unremarkable. Lungs: No focal consolidation, pleural effusion or significant pneumothorax. No suspicious pulmonary nodule or mass. Musculoskeletal: No acute osseous abnormality. Upper abdomen: Cholelithiasis. Punctate calculus upper pole right kidney. IMPRESSION: 1. No evidence of acute intrathoracic abnormality identified. 2. No findings of pulmonary embolus or pulmonary artery hypertension. 3. Cholelithiasis 4. Punctate calculus upper pole right kidney. All CT scans at this medical facility are performed using dose modulation techniques as appropriate t o a performed exam including the following: Automated exposure control was utilized; adjustment of th e MA and/or KV according to patient size; and use of iterative reconstruction technique.
[2024-10-02 20:26] LABS: Urine Bacteria FEW /hpf (None Seen); Urine Blood Negative /uL (Negative); Urine Clarity Clear (Clear); Urine Color Colorless (Yellow); Urine Protein, UAD Negative (Negative); Urine Specific Gravity 1.024 (1.001-1.035); Urine Urobilinogen Normal (Negative); Urine WBC 4 /hpf (0 - 5)
[2024-10-02] MEDS: SODIUM CHLORIDE 0.9% 1,000 ML IV SCH (20:46)
[2024-10-02] MEDS: METOPROLOL TARTRATE 25 MG TAB PO SCH (23:24)
[2024-10-02] MEDS: ATORVASTATIN 20 MG TAB PO SCH (23:31)
[2024-10-03] VITALS (14 sets, daily range): BP systolic 85–120; BP diastolic 51–68; PULSE 51–80; RESP 11–20; TEMP 97.4–97.8; O2SAT 94–99
[2024-10-03 06:23] LABS: Calcium 9.1 mg/dL (8.7-10.4); Chloride 109 mmol/L (98-107); Potassium 4.2 mmol/L (3.5-5.1); Sodium 141 mmol/L (136-145)
[2024-10-03 06:24] LABS: Anion Gap 7 (5-15); Carbon Dioxide 25 mmol/L (20-31)
[2024-10-03 06:29] LABS: BUN/Creatinine Ratio 15.2 (10.0-20.0); Blood Urea Nitrogen 12 mg/dL (9-23); Glucose 103 mg/dL (74-106)
[2024-10-03 06:41] LABS: Basophils # (auto) 0 10 ^3/uL (0-0.2); Basophils % (auto) 0.5 % (0.0-2.0); Eosinophils # (auto) 0.2 10 ^3/uL (0-0.8); Hematocrit 35.5 % (36.0-46.0); Hemoglobin 12.2 g/dL (12.2-16.2); Lymphocytes # (auto) 2.5 10 ^3/uL (0.4-5.4); Lymphocytes % (auto) 44.2 % (10.0-50.0); Mean Corpuscular Hgb Conc. 34.3 g/dL (32.0-36.0); Mean Corpuscular Volume 87.5 fL (80.0-100.0); Monocytes # (auto) 0.4 10 ^3/uL (0-1.3); Monocytes % (auto) 6.7 % (0.0-12.0); Neutrophils # (auto) 2.6 10 ^3/uL (1.6-8.6); Neutrophils % (auto) 45.6 % (37.0-80.0); Nucleated Red Blood Cells % 0.2 %; Platelet Count (auto) 246 10^3/uL (140-450); Red Blood Cells 4.05 10^6/uL (4.0-5.20); Red Cell Distribution Width 13.3 % (11.8-14.3); White Blood Cell 5.7 10^3/uL (4.4-10.8)
[2024-10-03] MEDS: LISINOPRIL 5 MG TAB PO SCH (09:31)
[2024-10-03] MEDS: DOCUSATE SOD 100 MG CAP PO SCH (09:55)
[2024-10-03] MEDS: CLOPIDOGREL BISULFATE 75 MG TAB PO SCH (09:55)
[2024-10-03] MEDS: ASPirin 81 mg TAB PO SCH (09:55)
[2024-10-03] MEDS ORDERED: ENOXAPARIN SOD 80 MG/0.8ML SYRINGE SC SCH (10:00)
--- NOTE | 2024-10-03 15:28 | DVHPN2 ---
Subjective Patient reports that she has intermittent chest pain as well as radiation of the pain to her left arm. Reviewed: Care Plan, H&P, Labs Changes from previous H/P or p: No Changes General: Per HPI Eyes: No Pain, No Vision change, No Conjunctivae inflammation, No Eyelid inflammation, No Other, No Redness ENT: No Ear pain, No Ear discharge, No Nose pain, No Nose discharge, No Nose congestion, No Mouth pain, No Mouth swelling, No Throat pain, No Throat swelling, No Other Cardiovascular: Chest Pain, Palpitations; No Orthopnea, No Paroxysmal Noc. Dyspnea, No Edema, No Lt Headedness, No Other Respiratory: No Cough, No Dry; Shortness of breath; No SOB with excertion, No Wheezing, No Hemoptysis, No Pleuritic Pain, No Sputum, No Other Gastrointestinal: No Nausea, No Vomiting, No Abdominal Pain, No Diarrhea, No Constipation, No Melena, No Hematochezia, No Other Genitourinary: No Dysuria, No Frequency, No Incontinence, No Hematuria, No Retention, No Other Musculoskeletal: No other, No neck pain, No shoulder pain, No arm pain, No back pain, No hand pain, No leg pain, No foot pain Skin: No Rash, No Lesions, No Jaundice, No Bruising, No Other Objective Vitals Vital Signs Date Time Temp Pulse Resp B/P (MAP) Pulse Ox O2 Delivery O2 Flow Rate FiO2 10/03/24 13:00 97.5 52 19 105/53 (70) 96 97.5 10/03/24 07:30 Room Air* 0 N/A Nasal Cannula* Intake/Output Intake and Output 10/03/24 07:00 Intake Total 1000 ml Balance 1000 ml Intake Oral 0 ml IV Total 1000 ml # Voids 2 General Appearance: Alert, Oriented X3, Cooperative, No acute distress HEENT: Atraumatic, PERRLA Lungs: Clear to auscultation, Normal air movement Cardiovascular: Normal S1, Normal S2 Abdomen: Normal bowel sounds, Soft, No tenderness Musculoskeletal: Normal sensory function, Normal motor function Extremities: No clubbing, No cyanosis Neuro: Normal speech Psych/Mental Status: Mental status NL, Mood NL Medications Current Medications Medications Dose Ordered Sig/Bud Route Start Time Stop Time Status Last Admin Dose Admin Sodium Chloride 1,000 ml @ 75 mls/hr [id number] IV 10/02/24 16:45 10/03/24 06:31 75 MLS/HR Aspirin 81 mg DAILY PO 10/03/24 10:00 10/03/24 09:55 81 MG Clopidogrel Bisulfate 75 mg DAILY PO 10/03/24 10:00 10/03/24 09:55 75 MG Atorvastatin Calcium 40 mg HS PO 10/02/24 22:00 10/02/24 23:31 40 MG Metoprolol Tartrate 12.5 mg Q12HR PO 10/02/24 22:00 10/02/24 23:24 12.5 MG Lisinopril 5 mg DAILY PO 10/03/24 10:00 Acetaminophen 650 mg Q6HP PRN PO 10/02/24 16:45 10/02/24 18:48 650 MG Zolpidem Tartrate 5 mg QHSP PRN PO 10/02/24 16:45 Lorazepam 0.5 mg Q6HP PRN PO 10/02/24 16:45 10/02/24 18:40 0.5 MG Docusate Sodium 100 mg DAILY PO 10/03/24 10:00 10/03/24 09:55 100 MG Enoxaparin Sodium 80 mg DAILY SC 10/03/24 10:00 UNV Ondansetron HCl 4 mg Q4HP PRN IV 10/02/24 16:45 Nitroglycerin 0.4 mg Q5MINP PRN SL 10/02/24 16:45 Morphine Sulfate 2 mg Q30M PRN IV 10/02/24 16:45 Laboratory Results Laboratory Tests 10/03/24 05:35 Chemistry Test 10/03/24 05:35 Calcium Level 9.1 mg/dL (8.7-10.4) Urinalysis Test 10/02/24 19:52 Urine Color Colorless (Yellow) Urine Clarity Clear (Clear) Urine pH 6.0 (5.0-9.0) Urine Specific [place] 1.024 (1.001-1.035) Urine Protein Negative (Negative) Urine Ketones Negative (Negative) Urine Blood Negative /uL (Negative) Urine Nitrite Negative (Negative) Urine Bilirubin Negative (Negative) Urine Urobilinogen Normal mg/dL (Negative) Urine Leukocyte Esterase Negative /uL (Negative) Urine RBC 1 /hpf (0 - 4) Urine WBC 4 /hpf (0 - 5) Urine Squamous Epithelial Cells Few /hpf (<5) Urine Bacteria Few /hpf (None Seen) H Urine Glucose Normal mg/dL (Normal) Labs and/or images reviewed: Labs reviewed by me, Image(s) reviewed by me Assessment/Plan Assessment/Plan Impression: -acute coronary syndrome -obesity -pulmonary embolism ruled out Plan: -patient reported that she had severe squeezing/pressure to her substernal area with associated nausea, dizziness as well as radiation of the pain down her left arm. Previous 12 lead EKG with noted ST depression in holding one of the inferior leads. Patient also noted to be borderline hypotensive. -cardiology consultation -echocardiogram -continue statin, aspirin, Plavix. As of note, patient did not receive a loading dose of Plavix while in the hospital. Was placed on 75 mg daily -lipid panel -check CRP -D-dimer elevated. Pulmonary embolism ruled out -further course of care per Cardiology recommendations Total time spent with patient discussing and formulating plan of care: 35 minutes. This medical document was created using an electronic medical record system with [employer] dictation system. Although this document has been carefully reviewed, there may still be some phonetic and typographical errors. These areas are purely typographical due to imperfections of the software programs, and do not reflect any compromise in the patient's medical care. Plan discussed with: Patient, Other (RN) My Orders Orders - KATELIN SCHULTZ NP Procedure Category Date Status Time Transfer Orders XFER 10/03/24 Transmitted 10:50 C-Reactive Protein LAB 10/03/24 Verified 15:21 Cardiac DIET 10/03/24 Verified Diet-2gna,Lofat,Lochol Dinner * Cardiology Consult CONS 10/03/24 Verified 15:21 NS PHA 10/03/24 Verified 15:30 Pantoprazole Tablet PHA 10/04/24 Verified (Protonix Tablet) 06:00 Echo 2d Mode Cardiac US 10/03/24 Verified DOP 15:21 Date of Service: Oct 03, 2024 Billing Provider: KATELIN SCHULTZ NP Common Visit Codes: [id number] INP/OBS CARE(HIGH) KATELIN SCHULTZ NP Oct 03, 2024 15:28
[2024-10-03] MEDS: SODIUM CHLORIDE 0.9% 500 ML IV ONE (15:40)
--- NOTE | 2024-10-03 16:48 | DVHINCON2 ---
Date Seen: Oct 03, 2024 Referring Physician CHANA Cai Reason for Consultation Chest pain History of Present Illness This is a pleasant 48-year-old female who presented to the emergency room with a chief complaint of chest pain. Describes her chest pain as left-sided, radiating to her left upper extremity, squeezing in nature, constant, and associated with dizziness, nausea, and left hand sweats. Denies SOB, palp itations, diaphoresis, or syncopal events. She underwent multiple 12-lead electrocardiogram revealing a sinus rhythm with significant ST segment depression to lead three with improvement on subsequent ECGs. Serial troponin levels are negative. She has a significant familial history for cardiovascular disease including maternal grandmother with coronary artery disease status post stent placement and from a massive myocardial infarction at 87 y.o., and father with history of permanent pacemaker. Denies any past medical history, states she underwent blood work with her PCP two months ago. Of note, the patient also reports recent gastroenteritis with sick contacts at home including nausea, vomiting, and diarrhea this past Tuesday. Past Medical History Past medical history reviewed. No other significant than mentioned above. Past Surgical History BTL Family History: Cancer G8 MOTHER, Onset:Unknown Family History See HPI. Social History Denies the use of illicit drugs, alcohol, or tobacco use. Allergies: Coded Allergies: NO KNOWN ALLERGIES (Unverified , 02/21/18) Home Meds Active Scripts Ibuprofen Micronized (Ibuprofen) 800 Mg Tab, 800 MG PO Q8HP PRN, #30 TAB Prov:DEJUAN BOONE MD 05/05/24 Naproxen (NAPROSYN TABLET) 500 Mg Tb, 1 TAB PO BID PRN, #20 TAB 1 Refill Prov:LEYLA BRADSHAW MD 02/15/24 Cyclobenzaprine Hcl (Cyclobenzaprine Hcl) 10 Mg Tab, 10 MG PO TID PRN, #21 TAB Prov:LEYLA BRADSHAW MD 02/15/24 Cyclobenzaprine Hcl (Cyclobenzaprine Hcl) 5 Mg Tab, 1 TAB PO QPM for 30 Days, #30 TAB 0 Refills Prov:KAYLA JACOB NP 01/16/24 Meloxicam (Meloxicam) 15 Mg Tab, 1 TAB PO DAILY for 30 Days, #30 TAB 0 Refills Prov:KAYLA JACOB NP 01/16/24 Oxycodone W/ Acetaminophen (Percocet 5/325MG) 1 Tab Tb, 1 TAB PO BID for 7 Days, #14 TAB Prov:ARRON PEREZ MD 12/01/22 Ciprofloxacin Hcl (Cipro) 500 Mg Tab, 1 TAB PO BID for 7 Days, #14 TAB Prov:ARRON PEREZ MD 12/01/22 Metronidazole (Flagyl) 500 Mg Tab, 500 MG PO BID for 7 Days, #14 TAB Prov:ARRON PEREZ MD 12/01/22 Acetaminophen (Acetaminophen) 500 Mg Tab, 500 MG PO QIDP, #30 TAB 0 Refills Prov:DANA JOSEPH 07/12/22 Amoxicillin & Pot Clavulanate (Amoxicillin/Potassium Cla) 875 Mg Tab, 1 TAB PO BID for 7 Days, #14 TAB 0 Refills Prov:DANA JOSEPH 07/12/22 Aspirin (Aspir-Low Ec) 81 Mg Tb, 1 TAB PO DAILY, #30 TAB Prov:LUIS DANIEL MARAVILLA MD 08/13/16 [Atorvastatin Calcium] 20 MG TB No Conflict Check, 10 MG PO HS, #30 TAB Prov:PRICILLA DUMONT M.D. 12/29/14 Home Meds Denies any home medications. Current Medications Current Medications Medications (Trade) Dose Ordered Sig/Bud Route PRN Reason Start Time Stop Time Status Last Admin Aspirin 81 mg DAILY PO 10/03/24 10:00 10/03/24 09:55 Clopidogrel Bisulfate (Plavix) 75 mg DAILY PO 10/03/24 10:00 10/03/24 09:55 Atorvastatin Calcium (Lipitor) 40 mg HS PO 10/02/24 22:00 10/02/24 23:31 Metoprolol Tartrate (Lopressor Tablet) 12.5 mg Q12HR PO 10/02/24 22:00 10/02/24 23:24 Lisinopril (Zestril Tablet) 5 mg DAILY PO 10/03/24 10:00 Docusate Sodium (Colace Capsule) 100 mg DAILY PO 10/03/24 10:00 10/03/24 09:55 Enoxaparin Sodium (Lovenox) 80 mg DAILY SC 10/03/24 10:00 10/03/24 15:33 DC Pantoprazole Sodium (Protonix Tablet) 40 mg DAILY@0600 PO 10/04/24 06:00 Review of Systems Constitutional: No symptom reported Ears, Nose, & Throat: No symptom reported Eyes: No symptom reported Neurological: Dizziness Pulmonary/Respiratory: No symptom reported Cardiovascular: Chest pain Gastrointestinal: Nausea Genitourinary: No symptom reported Musculoskeletal: No symptom reported Skin: No symptom reported Psychiatric: No symptom reported Endocrine: No symptom reported Hemotologic/Lymphatic: No symptom reported Vital Signs Vital Signs Date Time Temp Pulse Resp B/P (MAP) Pulse Ox O2 Delivery O2 Flow Rate FiO2 10/03/24 13:00 97.5 52 19 105/53 (70) 96 97.5 10/03/24 07:30 Room Air* 0 N/A Nasal Cannula* Physical Exam General Appearance: Cooperative. Well developed. Obese. In no acute distress Head Exam: Normal inspection Neck Exam: Normal inspection. Non-tender. Normal alignment Pulmonary/Respiratory: Chest non-tender. Clear bilateral breath sounds Cardiovascular/Chest: Regular rate and rhythm. S1, S2. No murmurs. No JVD. Peripheral Pulses: 2+ Radial (R). 2+ Radial (L). 2+ Pedal (R). 2+ Pedal (L) Abdominal Exam: Normal bowel sounds. Soft. Nontender. No hepatospenomegaly. No masses Ankle Exam: Negative ankle edema Lower extremities: Negative lower extremity edema Neuro/Mental Status: A&O x4. Coherent Thoughts/Psych: Normal thought pattern. Appropriate mood and affect. Good judgement and insight Appearance: In no acute distress Skin Exam: Normal inspection. Normal color. Warm. Dry Labs/Diagnostic Data Labs Test 10/03/24 05:35 10/02/24 19:52 10/02/24 19:04 10/02/24 15:16 Range/Units White Blood Count 5.7 4.4-10.8 10^3/uL Red Blood Count 4.05 4.0-5.20 10^6/uL Hemoglobin 12.2 12.2-16.2 g/dL Hematocrit 35.5 L 36.0-46.0 % Mean Corpuscular Volume 87.5 80.0-100.0 fL Mean Corpuscular Hemoglobin 30.0 28.0-32.0 pg Mean Corpuscular Hemoglobin Concent 34.3 32.0-36.0 g/dL Red Cell Distribution Width 13.3 11.8-14.3 % Platelet Count 246 140-450 10^3/uL Mean Platelet Volume 7.5 6.9-10.8 fL Neutrophils (%) (Auto) 45.6 37.0-80.0 % Lymphocytes (%) (Auto) 44.2 10.0-50.0 % Monocytes (%) (Auto) 6.7 0.0-12.0 % Eosinophils (%) (Auto) 3.0 0.0-7.0 % Basophils (%) (Auto) 0.5 0.0-2.0 % Neutrophils # (Auto) 2.6 1.6-8.6 10 ^3/uL Lymphocytes # (Auto) 2.5 0.4-5.4 10 ^3/uL Monocytes # (Auto) 0.4 0-1.3 10 ^3/uL Eosinophils # (Auto) 0.2 0-0.8 10 ^3/uL Basophils # (Auto) 0 0-0.2 10 ^3/uL Nucleated Red Blood Cells 0.2 % Sodium Level 141 136-145 mmol/L Potassium Level 4.2 3.5-5.1 mmol/L Chloride Level 109 H 98-107 mmol/L Carbon Dioxide Level 25 20-31 mmol/L Anion Gap 7 5-15 Blood Urea Nitrogen 12 9-23 mg/dL Creatinine 0.79 0.550-1.02 mg/dL Glomerular Filtration Rate Calc 92 >90 mL/min BUN/Creatinine Ratio 15.2 10.0-20.0 Serum Glucose 103 74-106 mg/dL Calcium Level 9.1 8.7-10.4 mg/dL C-Reactive Protein High Sensitivity 0.21 <1.0 mg/dL Urine Color Colorless Yellow Urine Clarity Clear Clear Urine pH 6.0 5.0-9.0 Urine Specific [place] 1.024 1.001-1.035 Urine Protein Negative Negative Urine Ketones Negative Negative Urine Blood Negative Negative /uL Urine Nitrite Negative Negative Urine Bilirubin Negative Negative Urine Urobilinogen Normal Negative mg/dL Urine Leukocyte Esterase Negative Negative /uL Urine RBC 1 0 - 4 /hpf Urine WBC 4 0 - 5 /hpf Urine Squamous Epithelial Cells Few <5 /hpf Urine Bacteria Few H None Seen /hpf Urine Glucose Normal Normal mg/dL Troponin I High Sensitivity < 3 L </=34 ng/L POC Glucose 120 H 70-106 mg/dl Test 10/02/24 15:13 Range/Units D-Dimer, Quantitative 1.02 H 0.0-0.49 mg/L FEU Lactic Acid Level 1.1 0.4-2.0 mmol/L Total Bilirubin 0.3 0.2-1.0 mg/dL Aspartate Amino Transferase (AST) 21 13-40 U/L Alanine Aminotransferase (ALT) 27 7-40 U/L Alkaline Phosphatase 118 H 46-116 U/L B-Type Natriuretic Peptide 20.90 0-100 pg/mL Total Protein 7.6 5.7-8.2 g/dL Albumin 4.3 3.2-4.8 g/dL Assessment Chest pain rule out coronary artery disease Rule out structural heart disease Pertinent family hx for CV disease Cholelithiasis Possible GERD Plan/Recommendation (Dr. Hutchinson) The patient will undergo a transthoracic echocardiogram to evaluate cardiac function as well as a cardiac catheterization and coronary angiogram to rule out coronary artery disease. All risks and benefits of the procedure were discussed with the patient who agrees to proceed with intervention. All questions answered. Thank you for allowing us to participate in this patient's care. Please call if you have any questions or concerns. Critical care time: 35 min. This medical document was created using an electronic medical record system with voice recognition software and computerized dictation system. Although this document has been carefully reviewed, there might still be some phonetic and typographical errors. Occasional wrong-word or ``sound-alike substitutions may have occurred due to the inherent limitations of voice recognition software. These areas are purely typographical due to imperfections of the software programs and do not reflect any compromise in the patient's medical care. Please read the chart carefully a nd recognize, using context, where these substitutions have occurred. Plan discussed with: Patient, Other Date of Service: Oct 03, 2024 Billing Provider: JAYCE HUTCHINSON MD Cardiology Common Codes: 14199-[id number] CARE 30-74 MIN [facility] Oct 03, 2024 16:48
[2024-10-03] MEDS: IODIXANOL 320MG/ML 100ML BTL IV ONE (17:00)
[2024-10-03] MEDS: ANGIOMAX 250 MG VIAL IV ONE (17:14)
[2024-10-03] MEDS: VERAPAMIL 2.5MG/ML INJ 2ML VIAL IV ONE (17:14)
[2024-10-03] MEDS: HEPARIN SODIUM (PORCINE) 5000 UNITS/ML 1ML VIAL ONE (17:14)
[2024-10-03] MEDS: LIDOCAINE 2%HCL (LOCAL ANESTH.) INJ 20ML MDV ONE (17:15)
[2024-10-03] MEDS: MIDAZOLAM HCL 2MG/2ML 2ml VIAL (1mg/ml) ONE (17:15)
[2024-10-03] MEDS: SODIUM CHL 0.9% 0 ML ONE (17:15)
[2024-10-03] MEDS: fentaNYL CITRATE 100 MCG/2 ML VL ONE (17:15)
--- NOTE | 2024-10-03 17:55 | DVHOP2 ---
Operative Report -Cardiology Report Details Date: 10/03/24 Preop Diagnosis: Angina pectoralis Postop Diagnosis: Coronary angiogram shows no significant coronary artery disease. Patient is here could be attributable to microvascular disease versus noncardiac chest pain Surgeon: Bobby Santoyo MD Anesthesiologist: Conscious sedation using25 mcg of fentanyl as well as a mg of midazolam. It was given in the direct supervision of the primary tiller worker myself in the presence of the attending nurses. Patient was monitored for total of35 minutes without obvious complication Anesthesia: Local Consent: The patient was informed of the risks and benefits of the procedure. These include but are not limited to complications of anesthesia, postoperative infection, incomplete relief of symptoms, recurrence of symptoms, damage to blo od vessels, nerves and tendons, deep venous thrombosis, pulmonary embolism and possible need for repeat surgery in the future. Indications for Surgery: This is a pleasant 48-year-old female who presented to the emergency room with a chief complaint of chest pain. Describes her chest pain as left-sided, radiating to her left upper extremity, squeezing in nature, constant, and associated with dizziness, nausea, and left hand sweats. Denies SOB, palpitations, diaphoresis, or syncopal events. She underwent multiple 12-lead electrocardiogram revealing a sinus rhythm with significant ST segment depression to lead three with improvement on subsequent ECGs. Serial troponin levels are negative. She has a significant familial history for cardiovascular disease including maternal grandmother with coronary artery disease status post stent placement and from a massive myocardial infarction at 87 y.o., and father with history of permanent pacemaker. Denies any past medical history, states she underwent blood work with her PCP two months ago. Of note, the patient also reports recent gastroenteritis with sick contacts at home including nausea, vomiting, and diarrhea this past Tuesday. Name of Procedure Performed 1. Left heart catheterization with left ventricular end-diastolic pressure measurement. 2. Selective right and left coronary angiography utilizing right transradial approach. 3. Conscious sedation using25 mcg of fentanyl as well as a mg midazolam Procedure Details Procedure Details: After informed consent was obtained, risks, benefits, complications, alternatives were discussed in details with the patient who agrees to have the procedure done. At the beginning of the procedure, the right wrist and right groin area were prepped and draped in regular sterile fashion. Patient received conscious sedation with25 mcg of fentanyl as well as a mg IV midazolam. Then a total of2 cc of 1% xylocaine was given locally to the right wrist area before a six Thai sheath was placed using modified Seldinger technique. Lizemores five Thai catheter was used as well as a J-tip Terascalason wire. Patient received total of 3000 heparin once the wire crossed the aortic arch. Findings were as follows: 1. Left heart catheterization with left ventricular end-diastolic pressure measurement: With the help of tiger five Thai catheter as well as a J-tip wire we were able to cross the aortic valve measured left ventricular end-diastolic pressure which was elevated at 23 mm of mercury. 2. Selective right and left coronary angiography utilizing right transradial approach: 1. Right coronary artery comes off the right coronary cusp it is a large dominant system it bifurcated distally into large posterior descending artery as well as large posterolateral branch. Right coronary artery is free of any significant atherosclerotic changes. 2. Left main comes off the left coronary cusp it is widely patent it bifurcated distally into large left anterior descending artery as well as a medium-sized left circumflex vessel. 3. The left circumflex vessel is medium-sized vessel it gives rise to two obtuse marginal branch without significant atherosclerotic plaquing. 4. Left anterior descending artery is large with transapical course gives rise to two diagonal branches, it has no significant atherosclerotic changes but mild irregularity of the proximal to mid segment. Impression and plan: 1. Quite elevated left ventricular end-diastolic pressure indicating diastolic heart dysfunction. 2. Selective right and left coronary angiography shows no significant coronary artery disease indicating the chest pain could be due to microvascular disease or noncardiac source of pain 3. Risk factor modification is warranted including hypertension, hyperlipidemia, and searching for other risk factors like diabetes Condition Good Disposition BOBBY SANTOYO MD Oct 03, 2024 17:55
--- NOTE | 2024-10-03 18:02 | DVHSR ---
APPROVED REPORT EXAM: Two-dimensional and M-mode echocardiogram with Doppler and color Doppler. Blood Pressure: 105/53 mmHg INDICATION ACS RISK FACTORS Height: 5'5, Weight: 188 DIMENSIONS LVDd4.5 (3.8-5.7cm)LA (2D)4.1 (1.9-4.0cm)Aortic Root3.5 (2.0-3.7cm) LVDs2.6 (2.5-4.0cm)LA (MM) (1.9-4.0cm)Aortic Cusp Exc2.0 (1.5-2.0cm) EF (%) 65.0 (55-70%)Rt. Atrium3.3 (1.9-4.0cm)Asc. Aorta2.9 cm IVSd0.8 (0.7-1.1cm)RV (D) (1.8-2.4cm) PWd1.2 (0.7-1.1cm) Mitral Valve MitralMitral Stenosis E wave0.90m/sMV Mean GR.mmHg A wave0.75m/sMV Peak GR.59mmHg E/A ratio1.22D MVAcm2 DECEL [id number] 1/2 Timems Aortic Valve Aortic ValveAortic Stenosis V10.96m/Katie Mean GR.3mmHg V21.29m/Katie Peak GR.7mmHg LVOT Diameter2.2 (1.8-2.4cm)Doppler AVA2.83cm2 Pulmonic Valve V20.71m/s Tricuspid Valve TR Velocity2.60m/s [id number] Conclusion Normal left ventricular size and dimension. Normal left ventricular systolic function estimated ejec tion fraction 55%. There is a grade2 diastolic dysfunction. Normal right ventricular size and dimension. Normal right ventricular systolic function. Slightly i ncreased right ventricular systolic [id number] mm of mercury Mildly dilated left atrium. Normal-sized right atrium Normal aortic valve structure and function. The mitral valve is mildly thickened there is mild mitral valve regurgitation. Normal tricuspid valve structure and function. The pulmonary valve is grossly normal. No pericardial effusion.
[2024-10-04] MEDS: MIDODRINE HCL 10 MG TAB PO ONE (00:38)
[2024-10-04 00:40] VITALS: BP 90/50; PULSE 81; RESP 16; TEMP 98; O2SAT 95
[2024-10-04 04:55] VITALS: BP 116/64; PULSE 57; RESP 17; TEMP 98.1; O2SAT 98
[2024-10-04] MEDS: PANTOPRAZOLE 40 MG TAB PO SCH (06:13)
[2024-10-04 07:09] LABS: Basophils # (auto) 0 10 ^3/uL (0-0.2); Basophils % (auto) 0.4 % (0.0-2.0); Eosinophils # (auto) 0.1 10 ^3/uL (0-0.8); Eosinophils % (auto) 2.4 % (0.0-7.0); Hematocrit 35.1 % (36.0-46.0); Hemoglobin 12.2 g/dL (12.2-16.2); Lymphocytes # (auto) 2.7 10 ^3/uL (0.4-5.4); Lymphocytes % (auto) 45.4 % (10.0-50.0); Mean Corpuscular Hemoglobin 30.4 pg (28.0-32.0); Mean Corpuscular Hgb Conc. 34.8 g/dL (32.0-36.0); Mean Corpuscular Volume 87.3 fL (80.0-100.0); Monocytes # (auto) 0.4 10 ^3/uL (0-1.3); Monocytes % (auto) 6.9 % (0.0-12.0); Neutrophils # (auto) 2.7 10 ^3/uL (1.6-8.6); Neutrophils % (auto) 44.9 % (37.0-80.0); Nucleated Red Blood Cells % 0.1 %; Platelet Count (auto) 244 10^3/uL (140-450); Red Blood Cells 4.02 10^6/uL (4.0-5.20); Red Cell Distribution Width 12.8 % (11.8-14.3)
[2024-10-04 07:18] LABS: Anion Gap 8 (5-15); Carbon Dioxide 27 mmol/L (20-31); Potassium 4.3 mmol/L (3.5-5.1); Sodium 144 mmol/L (136-145)
[2024-10-04 07:19] LABS: Calcium 9.2 mg/dL (8.7-10.4)
[2024-10-04 07:24] LABS: BUN/Creatinine Ratio 12.7 (10.0-20.0); Glucose 91 mg/dL (74-106); Triglycerides 118 mg/dL (< 150)
[2024-10-04 07:25] LABS: Cholesterol 113 mg/dL (< 200); LDL Cholesterol 67 mg/dL (< 100)
[2024-10-04 07:28] LABS: Blood Urea Nitrogen 9 mg/dL (9-23); Chloride 109 mmol/L (98-107); HDL Cholesterol 29 mg/dL (40-59)
[2024-10-04 09:00] VITALS: BP 120/66; PULSE 57; RESP 17; TEMP 98.1; O2SAT 97
--- NOTE | 2024-10-04 09:55 | DVHPN2 ---
Consult Progress Note Date Seen: Oct 04, 2024 Subjective Review of Systems: CVS:Normal, RESPIRATORY:Normal, MSK:Abnormal, NEURO:Normal Other Systems: C/o left arm numbeness. Right wrist incision is intact Objective vital signs Vital Sign Date Time Temp Pulse Resp B/P (MAP) Pulse Ox O2 Delivery O2 Flow Rate FiO2 10/04/24 09:00 98.1 57 17 120/66 (84) 97 98.1 10/04/24 07:38 Room Air* 0 N/A Nasal Cannula* Total Intake and Output 10/03/24 10/03/24 10/04/24 15:00 23:00 07:00 Intake Total 1200 ml 550 ml Balance 1200 ml 550 ml medications Current Medications Medications Dose Ordered Sig/Bud Route Start Time Stop Time Status Last Admin Dose Admin Sodium Chloride 1,000 ml @ 75 mls/hr [id number] IV 10/02/24 16:45 10/03/24 20:55 75 MLS/HR Acetaminophen 650 mg Q6HP PRN PO 10/02/24 16:45 10/03/24 15:40 650 MG Zolpidem Tartrate 5 mg QHSP PRN PO 10/02/24 16:45 Lorazepam 0.5 mg Q6HP PRN PO 10/02/24 16:45 10/02/24 18:40 0.5 MG Docusate Sodium 100 mg DAILY PO 10/03/24 10:00 10/03/24 09:55 100 MG Ondansetron HCl 4 mg Q4HP PRN IV 10/02/24 16:45 Pantoprazole Sodium 40 mg DAILY@0600 PO 10/04/24 06:00 10/04/24 06:13 40 MG Examination: LUNGS:Normal, CVS:Normal, NEURO:Normal laboratory and microbiology Laboratory Tests 10/04/24 06:39 Test 10/04/24 06:39 Range/Units Serum Glucose 91 74-106 mg/dL Problem List/Assessment/Plan Problem List/Assessment/Plan Chest pain - coronary artery disease ruled out Chronic compensated diastolic heart failure Pertinent family hx for CV disease Pre-diabetes, newly diagnosed Cholelithiasis Possible GERD Plan/Recommendation (Dr. Hutchinson) Transthoracic echocardiogram revealed EF 55% with grade II diastolic dysfunction. Cardiac catheterization and coronary angiogram revealed no significant coronary artery disease. Chest pain likely musculoskeletal in nature. Counseled on diet and exercise given pre-diabetes. There is no further cardiac work-up indicated at this time. Kindly call with any questions or concerns. Thank you for allowing us to participate in this patient's care. Critical care time: 35 min. This medical document was created using an electronic medical record system with voice recognition software and computerized dictation system. Although this document has been carefully reviewed, there might still be some phonetic and typographical errors. Occasional wrong-word or ``sound-alike substitutions may have occurred due to the inherent limitations of voice recognition software. These areas are purely typographical due to imperfections of the software programs and do not reflect any compromise in the patient's medical care. Please read the chart carefully and recognize, using context, where these substitutions have occurred. Plan discussed with: Patient, Other Date of Service: Oct 04, 2024 Billing Provider: JAYCE HUTCHINSON MD Cardiology Common Codes: [id number] INP/OBS CARE(Mod) [facility] Oct 04, 2024 09:55
[2024-10-04] MEDS ORDERED: LISI-275 PO (10:01)
--- NOTE | 2024-10-04 10:06 | DVHDS2 ---
Discharge Summary Date of Admission Oct 02, 2024 at 16:42 Date of Discharge: Oct 04, 2024 Admitting Diagnosis Chest pain Labs/Diagnostic Data: Laboratory Results Test 10/04/24 06:39 10/03/24 05:35 10/02/24 19:52 10/02/24 19:04 White Blood Count 6.0 10^3/uL (4.4-10.8) Red Blood Count 4.02 10^6/uL (4.0-5.20) Hemoglobin 12.2 g/dL (12.2-16.2) Hematocrit 35.1 % (36.0-46.0) Mean Corpuscular Volume 87.3 fL (80.0-100.0) Mean Corpuscular Hemoglobin 30.4 pg (28.0-32.0) Mean Corpuscular Hemoglobin Concent 34.8 g/dL (32.0-36.0) Red Cell Distribution Width 12.8 % (11.8-14.3) Platelet Count 244 10^3/uL (140-450) Mean Platelet Volume 7.4 fL (6.9-10.8) Neutrophils (%) (Auto) 44.9 % (37.0-80.0) Lymphocytes (%) (Auto) 45.4 % (10.0-50.0) Monocytes (%) (Auto) 6.9 % (0.0-12.0) Eosinophils (%) (Auto) 2.4 % (0.0-7.0) Basophils (%) (Auto) 0.4 % (0.0-2.0) Neutrophils # (Auto) 2.7 10 ^3/uL (1.6-8.6) Lymphocytes # (Auto) 2.7 10 ^3/uL (0.4-5.4) Monocytes # (Auto) 0.4 10 ^3/uL (0-1.3) Eosinophils # (Auto) 0.1 10 ^3/uL (0-0.8) Basophils # (Auto) 0 10 ^3/uL (0-0.2) Nucleated Red Blood Cells 0.1 % Sodium Level 144 mmol/L (136-145) Potassium Level 4.3 mmol/L (3.5-5.1) Chloride Level 109 mmol/L (98-107) Carbon Dioxide Level 27 mmol/L (20-31) Anion Gap 8 (5-15) Blood Urea Nitrogen 9 mg/dL (9-23) Creatinine 0.71 mg/dL (0.550-1.02) Glomerular Filtration Rate Calc 104 mL/min (>90) BUN/Creatinine Ratio 12.7 (10.0-20.0) Serum Glucose 91 mg/dL (74-106) Hemoglobin A1c 5.7 % A1C (<5.7) Calcium Level 9.2 mg/dL (8.7-10.4) Magnesium Level 2.0 mg/dL (1.6-2.6) Triglycerides Level 118 mg/dL (< 150) Cholesterol Level 113 mg/dL (< 200) LDL Cholesterol 67 mg/dL (< 100) HDL Cholesterol 29 mg/dL (40-59) Thyroid Stimulating Hormone (TSH) 1.06 uIU/mL (0.55-4.78) C-Reactive Protein High Sensitivity 0.21 mg/dL (<1.0) Urine Color Colorless (Yellow) Urine Clarity Clear (Clear) Urine pH 6.0 (5.0-9.0) Urine Specific [place] 1.024 (1.001-1.035) Urine Protein Negative (Negative) Urine Ketones Negative (Negative) Urine Blood Negative /uL (Negative) Urine Nitrite Negative (Negative) Urine Bilirubin Negative (Negative) Urine Urobilinogen Normal mg/dL (Negative) Urine Leukocyte Esterase Negative /uL (Negative) Urine RBC 1 /hpf (0 - 4) Urine WBC 4 /hpf (0 - 5) Urine Squamous Epithelial Cells Few /hpf (<5) Urine Bacteria Few /hpf (None Seen) Urine Glucose Normal mg/dL (Normal) Troponin I High Sensitivity < 3 ng/L (</=34) Test 10/02/24 15:16 10/02/24 15:13 POC Glucose 120 mg/dl (70-106) D-Dimer, Quantitative 1.02 mg/L FEU (0.0-0.49) Lactic Acid Level 1.1 mmol/L (0.4-2.0) Total Bilirubin 0.3 mg/dL (0.2-1.0) Aspartate Amino Transferase (AST) 21 U/L (13-40) Alanine Aminotransferase (ALT) 27 U/L (7-40) Alkaline Phosphatase 118 U/L (46-116) B-Type Natriuretic Peptide 20.90 pg/mL (0-100) Total Protein 7.6 g/dL (5.7-8.2) Albumin 4.3 g/dL (3.2-4.8) Other Laboratory Tests 10/04/24 06:39 Brief Hx & Hospital Course: History of Present Illness 48-year-old obese patient with past medical history of hypertension and intermittent constipation comes to the ED with complaints of chest pain that has been happening since the new the patient described the chest pain is acute tightness in the chest mostly on the left side with mild radiation to the right arm and left arm patient states no other associated factors including not being diabetic no underlying history of cardiac disease no underlying history of COPD patient was recommended for further evaluation of management within the ED to be admitted. Course of hospitalization: Discussion was made with the patient yesterday, with the patient continued to report intermittent chest pain, described as squeezing with radiation to her left arm with associated paresthesia. Patient also stated that she had nausea and some dizziness on the day of admission associated with her chest discomfort. Cardiology consultation was obtained. Discussion was made with Loree Cespedes NP. The patient ended up going for cardiac catheterization yesterday evening with no CAD found for intervention. Echocardiogram was performed which revealed normal ejection fraction as well as the patient having grade 2 diastolic heart failure. Patient was also noted to have elevated right ventricular pressures. Patient has been cleared for discharge home. She will be started on lisinopril 5 mg p.o. daily, with the patient was hold with a systolic blood pressure less than 100 mmHg. Patient was requesting to return back to work tomorrow, stating that she does not do any physical labor. She was instructed not to lift anything greater than 5 lb for the next two weeks with her right hand. She was also instructed to follow up with the discharge Clinic in one week and her PCP in 1-2 weeks. Physical exam General: Alert and Oriented x3. No acute distress. Well-nourished. Eyes: EOMI. Anicteric. HENT: Moist mucous membranes. Lungs: Clear to auscultation bilaterally. No accessory muscle use. Cardiovascular: Regular rate and rhythm. No murmur. No JVD. Abdomen: Soft, non-tender and non-distended. No palpable masses. Extremities: No edema. Non-tender. Skin: No rashes or lesions. Warm. Neurologic: No focal neurological deficits. CN II-XII grossly intact, but not individually tested. Psychiatric: Cooperative. Appropriate mood and affect. Total time spent with patient discussing and formulating plan of care: 35 minutes. This medical document was created using an electronic medical record system with [employer] system. Although this document has been carefully reviewed, there may still be some phonetic and typographical errors. These areas are purely typographical due to imperfections of the software programs, and do not reflect any compromise in the patient's medical care. Consults/Reason for consult Cardiology: ACS Condition at Discharge: Good Final Diagnosis/Problems List Chest pain, secondary to microvascular disease Secondary Diagnosis: -acute coronary syndrome , ruled out -obesity -pulmonary embolism ruled out -acute diastolic heart failure Discharge Disposition: Home Discharge Instruct/Medications Diet: Cardiac 2g Na,low cholest Activity: No Restrictions, As Tolerated Follow Up/Referral: Follow up with PCP in 1-2 weeks If unable to obtain appointment, follow up with discharge Clinic in one week Medications: Lisinopril 5 mg p.o. daily, hold for systolic blood pressure less than 100 mmHg 36 Discharge Statement: "Patient was advised to return to the ER or call 911 if any headaches, dizziness, shortness of breath, chest pain, abdominal pain, bleeding, fevers, or worsening of medical condition. Patient was counseled about treatment plan, medications, possible side effects, patientverbalized understanding. All questions were answered to the best of my ability. This discharge took greater then 30 minutes in planning, reviewing documentation, counseling the patient, and discussing with other team members." ASSESSMENT ASSESSMENT Assessment Chest pain, secondary to microvascular disease Date of Service: Oct 04, 2024 Billing Provider: KATELIN SCHULTZ NP Common Visit Codes: 05390-DBL/OBS DISCH DAY >30min KATELIN SCHULTZ NP Oct 04, 2024 10:06
[2024-10-04 10:37] VITALS: BP 120/81; PULSE 70; TEMP 36.7
== END 2024-10-04 11:29 | disposition home or self-care (01) | DRG 191 ==
LOC: ER 15:03 → OVERFLOW 16:42 → WEST WING 10-03 03:25 → TELE-WESTW 10-03 10:35
PROVIDERS: ADMIT Hospitalist; ATTEND Hospitalist
PROC: 4A023N7 Measurement of Cardiac Sampling and Pressure, Left Heart, Percutaneous Approach (ICD-10-PCS; principal; 2024-10-03)
PROC: B2111ZZ Fluoroscopy of Multiple Coronary Arteries using Low Osmolar Contrast (ICD-10-PCS; 2024-10-03)
DX: I25.85 Chronic coronary microvascular dysfunction (principal); E11.65 Type 2 diabetes mellitus with hyperglycemia; K80.20 Calculus of gallbladder without cholecystitis without obstruction; E66.9 Obesity, unspecified; Z79.899 Other long term (current) drug therapy; Z82.49 Family history of ischemic heart disease and other diseases of the circulatory system; Z68.31 Body mass index [BMI] 31.0-31.9, adult; I10 Essential (primary) hypertension
CPT/HCPCS: 36415; 71045; 71275; 80048; 80053; 80061; 81001; 82962; 83036; 83605; 83735; 83880; 84443; 84484; 85025; 85379; 86141; 93005; 93306; 93458; 99152; G0378; J2250; Q9967

== ENCOUNTER 2025-03-30 16:19 | Emergency (ER) | payer MEDICAID ==
[~2025-03-30] VITALS: Ht 165.1 cm; Wt 91.5 kg
[~2025-03-30 16:19] MED LIST changes: +LISI-275 PO
--- NOTE | 2025-03-30 17:54 | ED.PDOC ---
GI ASSESSMENT HPI Comments 49 y/o F, with PMHx of colitis and chronic migraines presents to the ED for CC of abdominal pain. Patient states, she has been experiencing diffuse abdominal pain x3days. Patient denies nausea, vomiting, or diarrhea. No other symptoms or modifying factors present at this time. Chief Complaint: Abdominal Pain Time Seen by MD: 17:50 Primary Care Provider: DARREN Reviewed Notes: Nurses Notes, Medications, Allergies Allergies: Coded Allergies: NO KNOWN ALLERGIES (Unverified , 02/21/18) Home Meds Active Scripts Lisinopril (Lisinopril) 5 Mg Tab, 5 MG PO DAILY for 30 Days, #30 TAB Prov:KATELIN SCHULTZ [employer] 10/04/24 Ibuprofen Micronized (Ibuprofen) 800 Mg Tab, 800 MG PO Q8HP PRN, #30 TAB Prov:DEJUAN BOONE MD 05/05/24 Naproxen (NAPROSYN TABLET) 500 Mg Tb, 1 TAB PO BID PRN, #20 TAB 1 Refill Prov:LEYLA BRADSHAW MD 02/15/24 Cyclobenzaprine Hcl (Cyclobenzaprine Hcl) 10 Mg Tab, 10 MG PO TID PRN, #21 TAB Prov:LEYLA BRADSHAW MD 02/15/24 Cyclobenzaprine Hcl (Cyclobenzaprine Hcl) 5 Mg Tab, 1 TAB PO QPM for 30 Days, #30 TAB 0 Refills Prov:KAYLA JACOB [employer] 01/16/24 Meloxicam (Meloxicam) 15 Mg Tab, 1 TAB PO DAILY for 30 Days, #30 TAB 0 Refills Prov:KAYLA JACOB NP 01/16/24 Oxycodone W/ Acetaminophen (Percocet 5/325MG) 1 Tab Tb, 1 TAB PO BID for 7 Days, #14 TAB Prov:ARRON PEREZ MD 12/01/22 Ciprofloxacin Hcl (Cipro) 500 Mg Tab, 1 TAB PO BID for 7 Days, #14 TAB Prov:ARRON PEREZ MD 12/01/22 Metronidazole (Flagyl) 500 Mg Tab, 500 MG PO BID for 7 Days, #14 TAB Prov:ARRON PEREZ MD 12/01/22 Acetaminophen (Acetaminophen) 500 Mg Tab, 500 MG PO QIDP, #30 TAB 0 Refills Prov:DANA JOSEPH 07/12/22 Amoxicillin & Pot Clavulanate (Amoxicillin/Potassium Cla) 875 Mg Tab, 1 TAB PO BID for 7 Days, #14 TAB 0 Refills Prov:DANA JOSEPH 07/12/22 Aspirin (Aspir-Low Ec) 81 Mg Tb, 1 TAB PO DAILY, #30 TAB Prov:LUIS DANIEL MARAVILLA MD 08/13/16 [Atorvastatin Calcium] 20 MG TB No Conflict Check, 10 MG PO HS, #30 TAB Prov:PRICILLA DUMONT M.D. 12/29/14 Information Source: Patient Mode of Arrival: Ambulatory Timing: Days Duration: Since onset Prehospital treatment: None Quality: None Vomitus: None Stool: Normal Severity: Moderate Recent: None Recent Hx of: None Pain Location: Diffuse Associated sign and symptoms: Abdominal Pain Past Medical History PAST MEDICAL HISTORY: Denies Past Medical History (Other): COLITIS, MIGRAINS Surgical History: BTL, Tubal Ligation PAPER REWINDER History: No Pertinent PAPER REWINDER History Family History Family History: Reviewed,noncontributory to illness Social History Smoker: Non-Smoker Alcohol: Denies ETOH Use Drugs: Denies Drug Use Lives In: Home Constitutional: denies: chills, diaphoresis, fatigue, fever, malaise, sweats, weakness, others EENTM: denies: blurred vision, double vision, ear bleeding, ear discharge, ear drainage, ear pain, ear ringing, eye pain, eye redness, hearing loss, mouth pain, mouth swelling, nasal discharge, nose bleeding, nose congestion, nose pain, photophobia, tearing, throat pain, throat swelling, voice changes, others Respiratory: denies: cough, hemoptysis, orthopnea, SOB at rest, shortness of breath, SOB with excertion, stridor, wheezing, others Cardiovascular: denies: chest pain, dizzy spells, diaphoresis, Dyspnea on exertion, edema, irregular heart beat, left arm pain, lightheadedness, palpitat ions, PND, syncope, others Gastrointestinal: reports: abdominal pain; denies: abdomen distended, blood streaked bowels, constipated, diarrhea, dysphagia, difficulty swallowing, hematemesis, melena, nausea, poor appetite, poor fluid intake, rectal bleeding, rectal pain, vomiting, others Genitourinary: denies: abnormal vagina bleeding, burning, dyspareunia, dysuria, flank pain, frequency, hematuria, incontinence, pain, , vagina discharge , urgency, others Neurological: denies: dizziness, fainting, headache, left sided numbness, left sided weakness, numbness, paresthesia, pre-existing deficit, right sided numbness, right sided weakness, seizure, speech problems, tingling, tremors, weakness, others Musculoskeletal: denies: back pain, gout, joint pain, joint swelling, muscle pain, muscle stiffness, neck pain, others Integumetry: denies: bruises, change in color, change in hair/nails, dryness, laceration, lesions, lumps, rash, wounds, others Allergic/Immunocompromised: denies: Difficulty Healing, Frequent Infections, Hives, Itching, others Hematologic/Lymphatic: denies: anemia, blood clots, easy bleeding, easy bruising, swollen glands, others Endocrine: denies: excessive hunger, excessive sweating, excessive thirst, excessive urination, flushing, intolerance to cold, intolerance to heat, unexplained weight gain, unexplained weight loss, others Psychiatric: denies: anxiety, bipolar disorder, depression, hopeless, panic di sorder, schizophrenia, sleepless, suicidal, others All Other Systems: Reviewed and Negative Physical Exam General Appearance: No Apparent Distress, Normal HEENT: Normal ENT Inspection, Pharynx Normal Neck: Full Range of Motion, Non-Tender, Normal, Normal Inspection Respiratory: Chest Non-Tender, Lungs Clear, No Accessory Muscle Use, No Respiratory Distress, Normal Breath Sounds Cardiovascular: No Edema, No Murmur, No Gallop, Normal Peripheral Pulses, Regular Rate/Rhythm Breast Exam: Deferred Gastrointestinal: No Organomegaly, Non Tender, No Pulsatile Mass, Normal Bowel Sounds, Soft Genitalia: Deferred Pelvic: Deferred Rectal: Deferred Extremities: No calf tenderness, Normal capillary refill, Normal inspection, Normal range of motion, Non-tender, No pedal edema Musculoskeletal : Apperance: Normal Neurologic: Alert, 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 Was a procedure done?: No GI differential Dx Differential Diagnosis: Appendicitis, Constipation, Diverticular disease, Gastritis/PUD, Gastroenteritis, Inflammatory BD, Ischemic Bowel, Electrolyte Imbalance, Food Poisoning, Bacterial, Viral, Impaction X-Ray, Labs, Meds, VS Vital Signs Date Time Temp Pulse Resp B/P (MAP) Pulse Ox O2 Delivery O2 Flow Rate FiO2 03/30/25 16:49 97.7 74 18 99/74 (82) 94 97.7 Lab Test 03/30/25 18:00 Range/Units White Blood Count 7.2 4.4-10.8 10^3/uL Red Blood Count 4.82 4.0-5.20 10^6/uL Hemoglobin 14.0 12.2-16.2 g/dL Hematocrit 41.4 36.0-46.0 % Mean Corpuscular Volume 85.9 80.0-100.0 fL Mean Corpuscular Hemoglobin 29.1 28.0-32.0 pg Mean Corpuscular Hemoglobin Concent 33.9 32.0-36.0 g/dL Red Cell Distribution Width 13.5 11.8-14.3 % Platelet Count 279 140-450 10^3/uL Mean Platelet Volume 7.6 6.9-10.8 fL Neutrophils (%) (Auto) 52.6 37.0-80.0 % Lymphocytes (%) (Auto) 37.3 10.0-50.0 % Monocytes (%) (Auto) 7.8 0.0-12.0 % Eosinophils (%) (Auto) 2.0 0.0-7.0 % Basophils (%) (Auto) 0.3 0.0-2.0 % Neutrophils # (Auto) 3.8 1.6-8.6 10 ^3/uL Lymphocytes # (Auto) 2.7 0.4-5.4 10 ^3/uL Monocytes # (Auto) 0.6 0-1.3 10 ^3/uL Eosinophils # (Auto) 0.1 0-0.8 10 ^3/uL Basophils # (Auto) 0 0-0.2 10 ^3/uL Nucleated Red Blood Cells 0.0 % Sodium Level 142 136-145 mmol/L Potassium Level 4.0 3.5-5.1 mmol/L Chloride Level 106 98-107 mmol/L Carbon Dioxide Level 29 20-31 mmol/L Anion Gap 7 5-15 Blood Urea Nitrogen 12 9-23 mg/dL Creatinine 0.81 0.550-1.02 mg/dL Glomerular Filtration Rate Calc 88 >90 mL/min BUN/Creatinine Ratio 14.8 10.0-20.0 Serum Glucose 97 74-106 mg/dL Calcium Level 9.1 8.7-10.4 mg/dL Total Bilirubin 0.3 0.2-1.0 mg/dL Aspartate Amino Transferase (AST) 41 H 13-40 U/L Alanine Aminotransferase (ALT) 68 H 7-40 U/L Alkaline Phosphatase 127 H 46-116 U/L Total Protein 7.4 5.7-8.2 g/dL Albumin 4.4 3.2-4.8 g/dL Lipase 40 12-53 U/L [place] [id number] Ph: [phone] DIAGNOSTIC IMAGING Diagnostic Imaging Report : [id number] Signed 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 Imaging was performed without IV contrast. Axial, coronal and sagittal multiplanar reformats were obtained from the axial data set by the technologist. Radiation Dose : 1. Abdomen/Pelvis: CTDIvol 14.6 mGy, DLP 827 mGy*cm. Findings: Evaluation of solid organs is limited due to lack of intravenous contrast use. Lung Bases: No acute or significant lung base finding. Normal heart size. No pleural or pericardial effusion. Liver: The liver is normal in size. No focal lesions. Gallbladder and Biliary Tree: Unremarkable Spleen: Unremarkable Pancreas: The pancreas is grossly normal in appearance. Adrenal Glands: Unremarkable Kidneys: Kidneys are grossly normal without calculi or hydronephrosis. Bladder: Grossly unremarkable for degree of distention. Bowel: The stomach is grossly normal in appearance. Mild concentric wall thickening throughout the colon may reflect underdistention versus mild colitis . The appendix is not visualized; however, no secondary findings of acute appendicitis identified. Ascites: Absent Lymphadenopathy: No mesenteric, retroperitoneal or periportal lymphadenopathy. Abdominal Wall and Mesentery: Unremarkable. Vasculature: The visualized abdominal aorta is normal in size and caliber. Evaluation of abdominal and pelvic vessels is limited due to lack of intravenous contrast. Pelvic Organs: Unremarkable Musculoskeletal: No aggressive focal bony lesions, acute fractures or dislocation. IMPRESSION: 1. Mild concentric wall thickening throughout the colon may reflect underdistention versus mild colitis. Radiation optimization: All CT scans at this facility use at least one of these dose optimization techniques: automated exposure control mA and/or kV adju stment per patient size (includes targeted exams where dose is matched to clinical indication) or iterative reconstruction. ATED BY: GWEN KIM MD DICTATED DATE/TIME: 03/30/251813 SIGNED BY: GWEN KIM MD SIGNED DATE/TIME: 03/30/251813 CC: Time of 1ST Reevaluation: 18:20 Reevaluation 1ST: Unchanged Patient Education/Counseling: Diagnosis, Treatment Family Education/Counseling: No Family Present Additional Information Previous visits reviewed: 09/22/24 DX: CHEST PAIN, 12/01/22 DX: NON-SPECIFIC COLITIS The following tests were ordered, and results were reviewed by me: CBC, CMP, LIPASE, UA, CT ABD PEL I reviewed and agreed with the following test results read by other providers: CT ABD PEL I discussed treatment and results with medical personnel and: patient Comprehensive systems review obtained and negative except for what is stated in the HPI. pt is well appearing, feeling improved. workup only shows colitis. her bp is 116/82. HR 68. she is stable for discharge with colitis. i will start her on augmentin and flagyl Departure 1 Departure Time of Disposition: 19:18 Impression: Primary Impression: Colitis Disposition: HOME / SELF CARE / HOMELESS Condition: Good e-Prescriptions Amoxicillin & Pot Clavulanate (AUGMENTIN TABLET) 875 Mg Tb 875 MG PO BID for 10 Days, #20 TAB Prov: FRANKY WHEATLEY MD 03/30/25 Metronidazole (Flagyl) 500 Mg Tab 1 TAB PO TID, #30 TAB Prov: FRANKY WHEATLEY MD 03/30/25 Discharged With: Self Critical Care Note Critical Care Time?: No Stability Stability form required: No Heart Score Heart Score: Heart Score Response (Comments) Value History N/A 0 EKG N/A 0 Age N/A 0 Risk Factors N/A 0 Troponin N/A 0 Total 0 I personally scribed for FRANKY WHEATLEY MD ([email or web address]) on 03/30/25 at 17:54. Electronically submitted by Rylie Sahu ([employer]). I personally scribed for FRANKY WHEATLEY MD ([email or web address]) on 03/30/25 at 18:23. Electronically submitted by Rylie Sahu ([employer]). I personally scribed for FRANKY WHEATLEY MD ([email or web address]) on 03/30/25 at 18:24. Electronically submitted by Rylie Sahu ([employer]). FRANKY WHEATLEY MD March 30, 2025 17:54
--- NOTE | 2025-03-30 18:16 | DVH ---
Exam: CT CT AB PEL WO CON-NO ORAL OR IV History: pain Comparison Study: CT ABD PELVIS WO CONTRAST on DOS: 12/01/22 Technique: Multidetector spiral CT of the abdomen was performed from lung bases to pubic symphysis. Imaging was performed without IV contrast. Axial, coronal and sagittal multiplanar reformats were ob tained from the axial data set by the technologist. Radiation Dose : 1. Abdomen/Pelvis: CTDIvol 14.6 mGy, DLP 827 mGy*cm. Findings: Evaluation of solid organs is limited due to lack of intravenous contrast use. Lung Bases: No acute or significant lung base finding. Normal heart size. No pleural or pericardial effusion. Liver: The liver is normal in size. No focal lesions. Gallbladder and Biliary Tree: Unremarkable Spleen: Unremarkable Pancreas: The pancreas is grossly normal in appearance. Adrenal Glands: Unremarkable Kidneys: Kidneys are grossly normal without calculi or hydronephrosis. Bladder: Grossly unremarkable for degree of distention. Bowel: The stomach is grossly normal in appearance. Mild concentric wall thickening throughout the co radha may reflect underdistention versus mild colitis . The appendix is not visualized; however, no sec ondary findings of acute appendicitis identified. Ascites: Absent Lymphadenopathy: No mesenteric, retroperitoneal or periportal lymphadenopathy. Abdominal Wall and Mesentery: Unremarkable. Vasculature: The visualized abdominal aorta is normal in size and caliber. Evaluation of abdominal a nd pelvic vessels is limited due to lack of intravenous contrast. Pelvic Organs: Unremarkable Musculoskeletal: No aggressive focal bony lesions, acute fractures or dislocation. IMPRESSION: 1. Mild concentric wall thickening throughout the colon may reflect underdistention versus mild colit is. Radiation optimization: All CT scans at this facility use at least one of these dose optimization isak hniques: automated exposure control mA and/or kV adjustment per patient size (includes targeted exam s where dose is matched to clinical indication) or iterative reconstruction.
[2025-03-30 18:32] LABS: Basophils # (auto) 0 10 ^3/uL (0-0.2); Basophils % (auto) 0.3 % (0.0-2.0); Eosinophils # (auto) 0.1 10 ^3/uL (0-0.8); Hematocrit 41.4 % (36.0-46.0); Lymphocytes # (auto) 2.7 10 ^3/uL (0.4-5.4); Lymphocytes % (auto) 37.3 % (10.0-50.0); Mean Corpuscular Hemoglobin 29.1 pg (28.0-32.0); Mean Corpuscular Hgb Conc. 33.9 g/dL (32.0-36.0); Mean Corpuscular Volume 85.9 fL (80.0-100.0); Monocytes # (auto) 0.6 10 ^3/uL (0-1.3); Monocytes % (auto) 7.8 % (0.0-12.0); Neutrophils # (auto) 3.8 10 ^3/uL (1.6-8.6); Neutrophils % (auto) 52.6 % (37.0-80.0); Platelet Count (auto) 279 10^3/uL (140-450); Red Blood Cells 4.82 10^6/uL (4.0-5.20); Red Cell Distribution Width 13.5 % (11.8-14.3); White Blood Cell 7.2 10^3/uL (4.4-10.8)
[2025-03-30 18:50] LABS: Albumin 4.4 g/dL (3.2-4.8); Anion Gap 7 (5-15); BUN/Creatinine Ratio 14.8 (10.0-20.0); Bilirubin, Total 0.3 mg/dL (0.2-1.0); Blood Urea Nitrogen 12 mg/dL (9-23); Calcium 9.1 mg/dL (8.7-10.4); Carbon Dioxide 29 mmol/L (20-31); Chloride 106 mmol/L (98-107); Glucose 97 mg/dL (74-106); Lipase 40 U/L (12-53); Sodium 142 mmol/L (136-145); Total Protein 7.4 g/dL (5.7-8.2)
[2025-03-30 18:51] LABS: Alanine Aminotransferase 68 U/L (7-40); Alkaline Phosphatase 127 U/L (46-116); Aspartate Aminotransferase 41 U/L (13-40)
[2025-03-30] MEDS ORDERED: AUG875T PO (19:14)
[2025-03-30] MEDS ORDERED: METR-344 PO (19:14)
[2025-03-30 19:52] VITALS: BP 111/73; PULSE 69; RESP 18; TEMP 97.8; O2SAT 96
== END 2025-03-30 19:53 | disposition home or self-care (01) ==
LOC: ER 16:19
DX: K52.9 Noninfective gastroenteritis and colitis, unspecified (principal); Z79.1 Long term (current) use of non-steroidal anti-inflammatories (NSAID); Z79.82 Long term (current) use of aspirin; Z79.899 Other long term (current) drug therapy; Z98.51 Tubal ligation status
CPT/HCPCS: 36415; 74176; 80053; 83690; 85025